=== PATIENT | male | born 1945 | race Caucasian/White ===

== ENCOUNTER 2017-07-02 08:50 | Emergency (ER) | payer OTHER ==
--- NOTE | 2017-07-02 10:11 | XRAY Report ---
EXAM: LEFT FOOT RADIOGRAPHY EXAM DATE: 07/02/2017 09:42 AM. CLINICAL HISTORY: Pain left mcp joint. COMPARISON: None. TECHNIQUE: 3 views. FINDINGS: Bones: No acute fractures or bone lesions. 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 Mild DJD at the first IP joint. Talonavicular DJD. No defini te erosions. Soft Tissues: Unremarkable. IMPRESSION: 1. No acute osseous abnormality. 2. Mild DJD. [facility] Referring Provider Line: [phone] SITE ID: [id number]
--- NOTE | 2017-07-02 10:11 | XRAY Preliminary Report ---
Exam: XR FOOT 3 VIEW LT IMPRESSION: 1. No acute osseous abnormality. 2. Mild DJD. [facility] SITE ID: [id number]
[2017-07-02] MEDS ORDERED: predniSONE 20 MG TABLET PO STA (10:59)
--- NOTE | 2017-07-02 10:59 | ED Physician Documentation ---
PD HPI LOWER EXT INJURY - Stated complaint Stated Complaint: LEG/FT PX - Chief complaint Chief Complaint: Ext Problem - History obtained from History obtained from: Patient - History of Present Illness PD HPI LOW EXT INJURY LOCATION: Left, Toe Type of injury: Other (No specific injury.) Timing - onset: How many weeks ago (2) Timing - details: Still present Worsened by: Moving, Palpating, Other (Weightbearing.) Associated symptoms: Swelling. No: Weakness, Numbness Similar symptoms before: Diagnosis (Reports history of similar symptoms in the past with gout.) - Treatment prior to arrival Treatment prior to arrival: hydrocodone. - Additional information Additional information: The patient is a 71-year-old male with history of gout, who presents with pain and swelling of his left big toe. His symptoms started 2 weeks ago and have persisted. He denies fever, numbness or weakness. He denies any traumatic injury. He has used hydrocodone without relief. He has been treated with short course of steroid medication for similar symptoms in the past, and that has helped. He does not take Naprosyn or other anti-inflammatory medication because of treatment with warfarin. He takes warfarin because of chronic atrial fibrillation. Review of Systems Constitutional: denies: Fever Nose: denies: Congestion Throat: denies: Sore throat Cardiac: denies: Chest pain / pressure Respiratory: denies: Dyspnea, Cough GI: denies: Abdominal Pain, Nausea, Vomiting : denies: Dysuria Skin: denies: Rash Musculoskeletal: reports: Extremity pain (Left great toe, especially at the MCP joint.), Extremity swelling (left foot.) Neurologic: denies: Generalized weakness, Focal weakness, Headache PD PAST MEDICAL HISTORY - Past Medical History Past Medical History: Yes Cardiovascular: Hypertension, Atrial fibrillation Endocrine/Autoimmune: HyPOthyroidism Musculoskeletal: Gout - Present Medications Home Medications: Ambulatory Orders Medication Instructions Recorded Confirmed predniSONE [Deltasone] 40 mg PO DAILY 5 Days #10 tablet 07/02/17 - Allergies Allergies/Adverse Reactions: Allergies Allergy/AdvReac Type Severity Reaction Status Date / Time Sulfa (Sulfonamide Allergy Unknown Verified 07/02/17 09:05 Antibiotics) - Social History Does the pt smoke?: No Smoking Status: Never smoker PD ED PE NORMAL - Vitals Vital signs reviewed: Yes (Borderline hypertension.) - General General: Alert and oriented X 3, Well developed/nourished - HEENT HEENT: Atraumatic - Cardiac Cardiac: No murmur, Other (Regular rate, irregularly irregular rhythm.) - Respiratory Respiratory: No respiratory distress, Clear bilaterally - Derm Derm: No rash - Extremities Extremities: No calf tenderness / cord, Other (There is slight erythema, and tenderness to palpation of the left great toe and distal foot, particularly at the first MCP joint. There is no significant warmth to palpation. Distal neurovascular is intact.) - Neuro Neuro: Alert and oriented X 3, No motor deficit, No sensory deficit Results - Vitals Vitals: Oxygen O2 Source Room air - Rads (name of study) left foot Radiology: Prelim report reviewed, EMP read contemporaneously, See rad report ( No acute osseous abnormality. Mild DJD.) PD MEDICAL DECISION MAKING - ED course Complexity details: reviewed results, re-evaluated patient, considered differential, d/w patient ED course: The patient's presentation is most consistent with gouty arthritis. His presentation does not suggest cellulitis or septic joint. There is no evidence of osteomyelitis on x-ray examination. Treatment in the emergency department included administration of prednisone 40 mg orally. He is being discharged with prescription for prednisone. I discussed with him symptomatic treatment, outpatient follow-up, as well as potentially worrisome signs or symptoms that should prompt reevaluation in the emergency department. Departure - Departure Disposition: 01 Home, Self Care Clinical Impression: Gouty arthritis of left great toe Condition: Stable Instructions: ED Arthritis Gout Prescriptions: predniSONE [Deltasone] 40 mg PO DAILY 5 Days #10 tablet Comments: Keep your left leg elevated as much of the time as possible. Take prednisone daily for 5 days as prescribed. Follow up with your primary physician within 1-2 weeks. Call to schedule appointment. Return to the emergency department if you develop increasing pain or swelling, or otherwise worsening symptoms. Discharge Date/Time: 07/02/17 11:12
[2017-07-02 11:05] VITALS: BP 138/93
== END 2017-07-02 11:12 | disposition home or self-care (01) ==
LOC: ED 08:50
DX: M10.9 Gout, unspecified (principal); I10 Essential (primary) hypertension; E03.9 Hypothyroidism, unspecified
CPT/HCPCS: 73630; 99283; J7512

== ENCOUNTER 2017-07-09 08:54 | Emergency (ER) | payer OTHER ==
[2017-07-09 09:02] VITALS: BP 139/90
[2017-07-09] MEDS ORDERED: KETOROLAC 60 MG/2 ML VIAL IM STA (09:21)
[2017-07-09] MEDS ORDERED: DEXAMETHASONE 10 MG/ML VIAL IM STA (09:21)
--- NOTE | 2017-07-09 09:34 | ED Physician Documentation ---
History of Present Illness - Stated complaint Stated Complaint: KNEE PX - Chief complaint Chief Complaint: Ext Problem - History obtained from History obtained from: Patient, Family - History of Present Illness Timing: How many weeks ago (2+) - Additonal information Additional information: 71-year-old male began to have some pain in his right knee and his left great toe about 2 and half weeks ago. He has been diagnosed with gouty arthritis and a gout attack. He has been on a 5 day course of prednisone which did not help as much as has in the past. He continues to have pain and now the pain in his knee is much worse. He is on Coumadin and has not been able to take Naprosyn. In the past he has relied on anti-inflammatories for treatment of the gout when he has had attacks. Review of Systems Constitutional: denies: Fever Eyes: denies: Decreased vision Ears: denies: Ear pain Nose: denies: Congestion Throat: denies: Sore throat Cardiac: denies: Chest pain / pressure Respiratory: denies: Dyspnea, Cough GI: denies: Abdominal Pain, Nausea, Vomiting : denies: Dysuria, Frequency Musculoskeletal: reports: Extremity pain. denies: Neck pain, Back pain Neurologic: denies: Generalized weakness, Focal weakness, Numbness PD PAST MEDICAL HISTORY - Past Medical History Past Medical History: Yes Cardiovascular: Hypertension, Atrial fibrillation Endocrine/Autoimmune: HyPOthyroidism Musculoskeletal: Gout - Present Medications Home Medications: Ambulatory Orders Medication Instructions Recorded Confirmed Colchicine 0.6 mg PO BID #20 tablet 07/09/17 Hydrocodone/Acetaminophen [Vicodin 1 tab ORAL QID 07/09/17 Hp 10-300 mg Tablet] Levothyroxine [Synthroid] 125 mcg PO QDAC 07/09/17 Lisinopril 10 mg PO DAILY 07/09/17 Metoprolol Succinate [Toprol Xl] 25 mg PO ONCE 07/09/17 Tamsulosin [Flomax] 0.4 mg PO DAILY 07/09/17 Warfarin [Coumadin] 5 mg PO 1400 07/09/17 amLODIPine [Norvasc] 5 mg PO DAILY 07/09/17 - Allergies Allergies/Adverse Reactions: Allergies Allergy/AdvReac Type Severity Reaction Status Date / Time Sulfa (Sulfonamide Allergy Unknown Verified 07/09/17 09:02 Antibiotics) - Social History Does the pt smoke?: No Smoking Status: Never smoker PD ED PE NORMAL - Vitals Vital signs reviewed: Yes (tachy and hypertensive) - General General: Alert and oriented X 3, No acute distress, Well developed/nourished - HEENT HEENT: Atraumatic, PERRL, EOMI - Respiratory Respiratory: No respiratory distress - Derm Derm: Normal color, Warm and dry, No rash - Extremities Extremities: No deformity, Other (There is tenderness to the right patella and this is similar to what the patient has had with prior episodes of gout. There is general swelling to the calf on the right and there are constriction bands present in the swelling from the FARZANEH wrap the patient has used. There is no palpable cord and not posterior calf tenderness. distal n/v is intact. The left great toe is erythematous and tender dorsally with swelling consistent with acute goutl.) - Neuro Neuro: Alert and oriented X 3, No motor deficit, No sensory deficit, Normal speech Eye Opening: Spontaneous Motor: Obeys Commands Verbal: Oriented GCS Score: 15 - Psych Psych: Normal mood, Normal affect Results - Vitals Vitals: Vital Signs - 24 hr 07/09/17 09:00 Temperature 36.8 C Heart Rate 107 H Respiratory 18 Rate Blood Pressure 139/90 H O2 Saturation 99 Oxygen O2 Source Room air - Labs Labs: Laboratory Tests 07/09/17 09:46 Whole Blood INR 1.5 H - Rads (name of study) right knee Radiology: Prelim report reviewed (Impression: Degenerative change right knee with prepatellar soft tissue swelling. 2. No acute bony pathology.), EMP read indepedently, See rad report PD MEDICAL DECISION MAKING - ED course Complexity details: reviewed results, re-evaluated patient, considered differential, d/w patient, d/w family ED course: 71-year-old male with acute gouty arthritis that is not resolving is not able to take anti-inflammatories. Here in the emergency department is treated with 10 mg dexamethasone 60 mg of Toradol IM and 1.2 mg of colchicine orally. We will place him on some colchicine and provide some pain medication as well. Departure - Departure Disposition: 01 Home, Self Care Clinical Impression: Gout of right knee Qualifiers: Gout etiology: idiopathic Chronicity: acute Qualified Code(s): M10.061 - Idiopathic gout, right knee Condition: Stable Instructions: ED Arthritis Gout Follow-Up: EARL JAMES MD [Primary Care Provider] - Prescriptions: Colchicine 0.6 mg PO BID #20 tablet
[2017-07-09] MEDS ORDERED: COLCHICINE 0.6 MG TABLET PO STA (09:50)
--- NOTE | 2017-07-09 09:58 | XRAY Report ---
EXAM: RIGHT KNEE RADIOGRAPHY EXAM DATE: 07/09/2017 09:46 AM. CLINICAL HISTORY: Pain swelling over patella. COMPARISON: None. TECHNIQUE: 4 views. FINDINGS: Bones: No fractures or bone lesions. Patellar tendon insertion enthesophyte. Joints: Medial and lateral meniscal chondrocalcinosis. Minimal early spurring along the medial knee j oint. Mild patellar articular surface spurring. Possible suprapatellar effusion. Soft Tissues: Prepatellar soft tissue swelling. IMPRESSION: Degenerative change right knee with prepatellar soft tissue swelling. No acute bony patho logy. [facility] Referring Provider Line: [phone] SITE ID: [id number]
== END 2017-07-09 10:19 | disposition home or self-care (01) ==
LOC: ED 08:54
DX: M10.061 Idiopathic gout, right knee (principal); I10 Essential (primary) hypertension; I48.91 Unspecified atrial fibrillation; Z79.01 Long term (current) use of anticoagulants; E03.9 Hypothyroidism, unspecified
CPT/HCPCS: 73564; 85610; 99283; A9270

== ENCOUNTER 2017-10-19 07:26 | Outpatient (CLI) | payer OTHER ==
[2017-10-19 07:55] LABS: BASOPHILS # (AUTO) 0.1 10^3/uL (0.0-0.1); BASOPHILS % (AUTO) 1.2 %; EOSINOPHILS # (AUTO) 0.4 10^3/uL (0.0-0.7); EOSINOPHILS % (AUTO) 6.2 %; HGB - HEMOGLOBIN 14.3 g/dL (14.0-18.0); LYMPHOCYTES # (AUTO) 1.4 10^3/uL (1.5-3.5); LYMPHOCYTES % (AUTO) 22.5 %; MEAN CORPUSCULAR HEMOGLOBIN 28.8 pg (27.0-31.0); MEAN CORPUSCULAR HGB CONC 32.9 g/dL (32.0-36.0); MEAN CORPUSCULAR VOLUME 87.7 fL (80.0-94.0); MONOCYTES # (AUTO) 0.6 10^3/uL (0.0-1.0); MONOCYTES % (AUTO) 8.6 %; NEUTROPHILS % (AUTO) 61.5 %; PLT - PLATELET COUNT 213 10^3/uL (130-450); RED BLOOD COUNT 4.97 10^6/uL (4.70-6.10); RED CELL DISTRIBUTION WIDTH 16.8 % (12.0-15.0); WHITE BLOOD COUNT 6.5 x10^3/uL (4.8-10.8)
[2017-10-19 08:05] LABS: HB2 TOTAL 15.9 g/dL; HEMOGLOBIN A1C 0.73 g/dL; HEMOGLOBIN A1C % 6.4 % (4.6-6.2)
[2017-10-19 08:06] LABS: INR 2.4 (0.8-1.2); PT - PROTHROMBIN TIME 25.8 secs (9.9-12.6)
[2017-10-19 08:07] LABS: ALBUMIN 3.9 g/dL (3.2-5.5); ALKALINE PHOSPHATASE 100 IU/L (42-121); ALT ALANINE AMINOTRANSFERASE 23 IU/L (10-60); AST ASPARTATE AMINOTRANSFERASE 23 IU/L (10-42); BILIRUBIN,TOTAL 0.6 mg/dL (0.2-1.0); BUN - BLOOD UREA NITROGEN 17 mg/dL (6-20); CARBON DIOXIDE - CO2 27 mmol/L (21-32); CHLORIDE 103 mmol/L (101-111); CHOL/HDL RATIO 3.8 (<5.0); CHOLESTEROL 181 mg/dL; CREATININE 1.3 mg/dL (0.6-1.2); GFR - MDRD 54 (>89); GLUCOSE 128 mg/dL (70-100); HDL CHOLESTEROL 48 mg/dL; LDL CHOLESTEROL,CALCULATED 112 mg/dL; LDL/HDL RATIO 2.3 (<3.6); MAGNESIUM 1.6 mg/dL (1.7-2.8); SODIUM 136 mmol/L (135-145); TOTAL PROTEIN 7.7 g/dL (6.7-8.2); URIC ACID 4.3 mg/dL (2.6-7.2); VLDL CHOLESTEROL 21 mg/dL
[2017-10-19 08:08] LABS: BILIRUBIN,URINE NEGATIVE (NEGATIVE); GLUCOSE, URINE (UA) NEGATIVE (NEGATIVE); KETONES,URINE (UA) NEGATIVE (NEGATIVE); LEUKOCYTE ESTERASE, URINE NEGATIVE (NEGATIVE); NITRITE,URINE NEGATIVE (NEGATIVE); OCCULT BLOOD,URINE SMALL (NEGATIVE); PROTEIN,URINE 100 mg/dL (NEGATIVE); UROBILINOGEN,URINE 0.2 (NORMAL) E.U./dL (NORMAL)
[2017-10-19 08:24] LABS: CLARITY,URINE CLEAR (CLEAR)
[2017-10-19 08:43] LABS: BACTERIA,URINE None Seen /HPF (None Seen); RBC,URINE 0-5 /HPF (0-5); SQUAMOUS EPITHELIAL CELL,UR RARE Squamous (<= Few)
[2017-10-19 08:44] LABS: CASTS, URINE 0-2 Hyaline Casts /LPF
[2017-10-21 08:57] LABS: HEPATITIS C ANTIBODY NON-REACTIVE (NON-REACTIVE)
== END 2017-10-19 07:27 | disposition home or self-care (01) ==
LOC: LAB 07:26
PROVIDERS: ATTEND Internal Medicine
DX: Z79.899 Other long term (current) drug therapy (principal); Z79.01 Long term (current) use of anticoagulants; Z13.6 Encounter for screening for cardiovascular disorders; I10 Essential (primary) hypertension; I48.91 Unspecified atrial fibrillation; M48.00 Spinal stenosis, site unspecified; M10.9 Gout, unspecified; G47.00 Insomnia, unspecified; G47.62 Sleep related leg cramps; R73.01 Impaired fasting glucose; E03.9 Hypothyroidism, unspecified; N19 Unspecified kidney failure
CPT/HCPCS: 36415; 80053; 80061; 81001; 81003; 83036; 83721; 83735; 84443; 84550; 85025; 85610; 86803; 87086

== ENCOUNTER 2018-01-21 11:20 | Outpatient (CLI) | payer OTHER | END 2018-01-21 11:21 | disposition home or self-care (01) | LOC: LAB 11:20 | PROVIDERS: ATTEND Internal Medicine | DX: E05.90 Thyrotoxicosis, unspecified without thyrotoxic crisis or storm (principal) | CPT/HCPCS: 36415; 84443 ==

== ENCOUNTER 2018-07-31 08:44 | Outpatient (CLI) | payer MEDICARE, BC | END 2018-07-31 08:45 | disposition home or self-care (01) | LOC: LAB.F 08:44 | PROVIDERS: ATTEND Internal Medicine | DX: I48.91 Unspecified atrial fibrillation (principal) | CPT/HCPCS: 85610 ==

== ENCOUNTER 2018-09-05 14:30 | Outpatient (CLI) | payer MEDICARE, BC | END 2018-09-05 14:31 | disposition home or self-care (01) | LOC: LAB.F 14:30 | PROVIDERS: ATTEND Internal Medicine | DX: I48.91 Unspecified atrial fibrillation (principal) | CPT/HCPCS: 85610 ==

== ENCOUNTER 2018-09-22 09:18 | Outpatient (CLI) | payer MEDICARE, BC | END 2018-09-22 09:19 | disposition home or self-care (01) | LOC: LAB.F 09:18 | PROVIDERS: ATTEND Internal Medicine | DX: I48.91 Unspecified atrial fibrillation (principal) | CPT/HCPCS: 85610 ==

== ENCOUNTER 2018-09-26 08:24 | Outpatient (CLI) | payer MEDICARE, BC ==
[2018-09-26 10:54] LABS: BASOPHILS % (AUTO) 0.8 %; EOSINOPHILS # (AUTO) 0.4 10^3/uL (0.0-0.7); EOSINOPHILS % (AUTO) 7.2 %; HGB - HEMOGLOBIN 12.7 g/dL (14.0-18.0); LYMPHOCYTES # (AUTO) 1.1 10^3/uL (1.5-3.5); LYMPHOCYTES % (AUTO) 19.1 %; MEAN CORPUSCULAR HGB CONC 33.7 g/dL (32.0-36.0); MONOCYTES # (AUTO) 0.6 10^3/uL (0.0-1.0); MONOCYTES % (AUTO) 9.6 %; NEUTROPHILS # (AUTO) 3.7 10^3/uL (1.5-6.6); NEUTROPHILS % (AUTO) 63.3 %; PLT - PLATELET COUNT 196 10^3/uL (130-450); RED BLOOD COUNT 4.23 10^6/uL (4.70-6.10); RED CELL DISTRIBUTION WIDTH 15.3 % (12.0-15.0); WHITE BLOOD COUNT 5.8 x10^3/uL (4.8-10.8)
[2018-09-26 11:14] LABS: ALBUMIN 3.8 g/dL (3.2-5.5); ALBUMIN/GLOBULIN RATIO 1.2 (1.0-2.2); ALKALINE PHOSPHATASE 113 IU/L (42-121); ALT ALANINE AMINOTRANSFERASE 25 IU/L (10-60); AST ASPARTATE AMINOTRANSFERASE 26 IU/L (10-42); BILIRUBIN,TOTAL 0.8 mg/dL (0.2-1.0); BUN - BLOOD UREA NITROGEN 14 mg/dL (6-20); CALCIUM 8.7 mg/dL (8.5-10.3); CARBON DIOXIDE - CO2 24 mmol/L (21-32); CHLORIDE 104 mmol/L (101-111); CHOL/HDL RATIO 3.1 (<5.0); CHOLESTEROL 119 mg/dL; GFR - MDRD 73 (>89); GLUCOSE 98 mg/dL (70-100); HDL CHOLESTEROL 38 mg/dL; LDL CHOLESTEROL,CALCULATED 70 mg/dL; LDL/HDL RATIO 1.8 (<3.6); SODIUM 138 mmol/L (135-145); TOTAL PROTEIN 7.1 g/dL (6.7-8.2); URIC ACID 7.3 mg/dL (2.6-7.2); VLDL CHOLESTEROL 11 mg/dL
[2018-09-26 11:27] LABS: HB2 TOTAL 13.1 g/dL; HEMOGLOBIN A1C 0.53 g/dL; HEMOGLOBIN A1C % 5.9 % (4.6-6.2)
[2018-09-26 18:22] LABS: BILIRUBIN,URINE NEGATIVE (NEGATIVE); GLUCOSE, URINE (UA) NEGATIVE (NEGATIVE); KETONES,URINE (UA) NEGATIVE (NEGATIVE); LEUKOCYTE ESTERASE, URINE NEGATIVE (NEGATIVE); NITRITE,URINE NEGATIVE (NEGATIVE); OCCULT BLOOD,URINE NEGATIVE (NEGATIVE); PH,URINE 6.5 PH (5.0-7.5); PROTEIN,URINE NEGATIVE (NEGATIVE); UROBILINOGEN,URINE 0.2 (NORMAL) E.U./dL (NORMAL)
[2018-09-26 18:24] LABS: CLARITY,URINE CLEAR (CLEAR)
== END 2018-09-26 08:25 | disposition home or self-care (01) ==
LOC: LAB.F 08:24
PROVIDERS: ATTEND Internal Medicine
DX: R73.01 Impaired fasting glucose (principal); M10.9 Gout, unspecified; E03.9 Hypothyroidism, unspecified; G47.00 Insomnia, unspecified; I48.91 Unspecified atrial fibrillation; I10 Essential (primary) hypertension; N19 Unspecified kidney failure; Z79.899 Other long term (current) drug therapy; Z13.6 Encounter for screening for cardiovascular disorders; Z12.11 Encounter for screening for malignant neoplasm of colon; Z12.12 Encounter for screening for malignant neoplasm of rectum; Z12.5 Encounter for screening for malignant neoplasm of prostate
CPT/HCPCS: 36415; 80061; 81003; 82274; 83036; 84550; G0103; 80053; 81001; 82607; 83721; 84153; 84443; 85025; 87086

== ENCOUNTER 2018-12-19 09:23 | Outpatient (CLI) | payer MEDICARE, BC | END 2018-12-19 09:24 | disposition home or self-care (01) | LOC: LAB.S 09:23 | PROVIDERS: ATTEND Internal Medicine | DX: I48.91 Unspecified atrial fibrillation (principal) | CPT/HCPCS: 85610 ==

== ENCOUNTER 2019-02-04 13:15 | Outpatient (CLI) | payer MEDICARE, BC | END 2019-02-04 13:16 | disposition home or self-care (01) | LOC: LAB.S 13:15 | PROVIDERS: ATTEND Internal Medicine | DX: I48.91 Unspecified atrial fibrillation (principal) | CPT/HCPCS: 85610 ==

== ENCOUNTER 2019-02-10 10:08 | Outpatient (CLI) | payer MEDICARE, BC | END 2019-02-10 10:09 | disposition home or self-care (01) | LOC: LAB.S 10:08 | PROVIDERS: ATTEND Internal Medicine | DX: I48.91 Unspecified atrial fibrillation (principal) | CPT/HCPCS: 85610 ==

== ENCOUNTER 2019-03-13 08:47 | Outpatient (CLI) | payer MEDICARE, BC | END 2019-03-13 08:48 | disposition home or self-care (01) | LOC: LAB.S 08:47 | PROVIDERS: ATTEND Internal Medicine | DX: I48.91 Unspecified atrial fibrillation (principal) | CPT/HCPCS: 85610 ==

== ENCOUNTER 2019-04-27 08:56 | Outpatient (CLI) | payer MEDICARE, BC | END 2019-04-27 08:57 | disposition home or self-care (01) | LOC: LAB.S 08:56 | PROVIDERS: ATTEND Internal Medicine | DX: I48.91 Unspecified atrial fibrillation (principal) | CPT/HCPCS: 85610 ==

== ENCOUNTER 2019-05-11 13:11 | Outpatient (CLI) | payer MEDICARE, BC | END 2019-05-11 13:12 | disposition home or self-care (01) | LOC: LAB.S 13:11 | PROVIDERS: ATTEND Internal Medicine | DX: I48.91 Unspecified atrial fibrillation (principal) | CPT/HCPCS: 85610 ==

== ENCOUNTER 2019-06-17 09:55 | Outpatient (CLI) | payer MEDICARE, BC | END 2019-06-17 09:56 | disposition home or self-care (01) | LOC: LAB.S 09:55 | PROVIDERS: ATTEND Internal Medicine | DX: I48.91 Unspecified atrial fibrillation (principal) | CPT/HCPCS: 85610 ==

== ENCOUNTER 2019-06-30 09:52 | Inpatient (IN) | payer MEDICARE, BC ==
--- NOTE | 2019-06-30 10:34 | XRAY Report ---
Reason: Chest Pain Procedure Date: 06/30/2019 Accession Number: [id number] / [id number] Procedure: XR - Chest 1 View X-Ray CPT Code: 03075 Final Report FULL RESULT: EXAM: CHEST RADIOGRAPHY EXAM DATE: 06/30/2019 10:04 AM. CLINICAL HISTORY: Chest Pain. COMPARISON: None. TECHNIQUE: 1 view. FINDINGS: Lungs/Pleura: No focal opacities evident. No pleural effusion. No pneumothorax. Mediastinum: Mild cardiomegaly. Ectatic aorta Other: Old right rib fractures. Left humeral anchors. Postop changes right AC joint IMPRESSION: 1. Mild cardiomegaly. 2. No active cardiopulmonary disease [facility]
[2019-06-30 10:41] LABS: BASOPHILS % (AUTO) 0.5 %; EOSINOPHILS # (AUTO) 0.4 10^3/uL (0.0-0.7); EOSINOPHILS % (AUTO) 4.4 %; HGB - HEMOGLOBIN 11.9 g/dL (14.0-18.0); LYMPHOCYTES # (AUTO) 1.2 10^3/uL (1.5-3.5); LYMPHOCYTES % (AUTO) 14.5 %; MEAN CORPUSCULAR HEMOGLOBIN 28.3 pg (27.0-31.0); MEAN CORPUSCULAR HGB CONC 31.6 g/dL (32.0-36.0); MEAN CORPUSCULAR VOLUME 89.5 fL (80.0-94.0); MEAN PLATELET VOLUME 10.1 fL (7.4-11.4); MONOCYTES # (AUTO) 0.9 10^3/uL (0.0-1.0); NEUTROPHILS # (AUTO) 5.9 10^3/uL (1.5-6.6); NEUTROPHILS % (AUTO) 69.3 %; PLT - PLATELET COUNT 217 10^3/uL (130-450); RED CELL DISTRIBUTION WIDTH 14.7 % (12.0-15.0); WHITE BLOOD COUNT 8.6 x10^3/uL (4.8-10.8)
[2019-06-30 10:56] LABS: ALBUMIN 3.5 g/dL (3.2-5.5); ALBUMIN/GLOBULIN RATIO 1.1 (1.0-2.2); BILIRUBIN,TOTAL 0.5 mg/dL (0.2-1.0); CALCIUM 8.8 mg/dL (8.5-10.3); CREATININE 1.5 mg/dL (0.6-1.2); TOTAL PROTEIN 6.8 g/dL (6.7-8.2)
--- NOTE | 2019-06-30 11:31 | ED Physician Documentation ---
PD HPI CHEST PAIN - Stated complaint Stated Complaint: INCREASED HEART RATE/CHEST TIGHTNESS - Chief complaint Chief Complaint: Cardiac - History obtained from History obtained from: Patient (This 73-year-old gentleman presents today with complaint of increased heart rate that started last Saturday after he had an epidural steroid injection at the L5-S1 region for neuropathy, that evening he noticed his heart rate was increased and since then his heart rate has remained increased into the 130s. At rest he can feel his heart racing but he does not feel short of breath lightheaded or dizzy or having chest pain but when he gets up and exerts himself he becomes fatigued very easily.) - History of Present Illness Pain level now: 0 Review of Systems Constitutional: reports: Fatigue (exhertional). denies: Fever, Chills Eyes: denies: Loss of vision, Decreased vision Cardiac: reports: Palpitations, Pedal edema. denies: Calf pain Respiratory: denies: Dyspnea, Cough, Wheezing GI: denies: Abdominal Pain, Nausea, Vomiting, Diarrhea : denies: Dysuria Neurologic: reports: Generalized weakness. denies: Syncope, Headache PD PAST MEDICAL HISTORY - Past Medical History Cardiovascular: Hypertension, Atrial fibrillation Respiratory: None Neuro: None Endocrine/Autoimmune: HyPOthyroidism Musculoskeletal: Gout - Present Medications Home Medications: Ambulatory Orders Medication Instructions Recorded Confirmed Colchicine 0.6 mg PO BID #20 tablet 07/09/17 06/30/19 Levothyroxine [Synthroid] 175 mcg PO QDAC 07/09/17 06/30/19 Warfarin [Coumadin] 5 mg PO 1700 07/09/17 06/30/19 amLODIPine [Norvasc] 5 mg PO DAILY 07/09/17 06/30/19 Meloxicam 7.5 mg PO BID PRN 06/30/19 06/30/19 Metoprolol Tartrate 25 mg PO BID 06/30/19 06/30/19 Pregabalin 75 mg PO BID 06/30/19 06/30/19 lisinopriL [Lisinopril] 2.5 mg PO DAILY 06/30/19 06/30/19 - Allergies Allergies/Adverse Reactions: Allergies Allergy/AdvReac Type Severity Reaction Status Date / Time Sulfa (Sulfonamide Allergy Unknown Verified 06/30/19 10:02 Antibiotics) - Social History Does the pt smoke?: No Smoking Status: Never smoker PD ED PE NORMAL - General General: Alert and oriented X 3 - HEENT HEENT: Atraumatic - Neck Neck: No JVD - Cardiac Cardiac: No murmur - Respiratory Respiratory: No respiratory distress, Clear bilaterally - Abdomen Abdomen: Normal bowel sounds, Soft, Non tender - Extremities Extremities: Other (BLEE L>R) - Psych Psych: Normal mood, Normal affect Results - Vitals Vitals: Vital Signs - 24 hr 06/30/19 06/30/19 06/30/19 10:02 10:30 12:24 Temperature 37.2 C Heart Rate 134 H 135 H 132 H Heart Rate [ Apical] Respiratory 18 12 18 Rate Blood Pressure 104/83 H 125/94 H 113/94 H Blood Pressure [Left Brachial artery] O2 Saturation 100 95 94 06/30/19 06/30/19 14:00 16:03 Temperature 36.9 C 36.7 C Heart Rate Heart Rate [ 78 77 Apical] Respiratory 19 20 Rate Blood Pressure Blood Pressure 125/75 123/70 [Left Brachial artery] O2 Saturation 99 99 Oxygen O2 Source Room air - Labs Labs: Laboratory Tests 06/30/19 06/30/19 06/30/19 10:23 10:23 10:23 WBC 8.6 RBC 4.20 L Hgb 11.9 L Hct 37.6 L MCV 89.5 MCH 28.3 MCHC 31.6 L RDW 14.7 Plt Count 217 MPV 10.1 Neut # (Auto) 5.9 Lymph # (Auto) 1.2 L [place] # (Auto) 0.9 Eos # (Auto) 0.4 Baso # (Auto) 0.0 Absolute Nucleated RBC 0.00 Nucleated RBC % 0.0 PT INR Sodium 138 Potassium 4.4 Chloride 107 Carbon Dioxide 24 Anion Gap 7.0 BUN 22 H Creatinine 1.5 H Estimated GFR (MDRD) 46 L Glucose 147 H Calcium 8.8 Magnesium Total Bilirubin 0.5 AST 19 ALT 25 Alkaline Phosphatase 107 Troponin I High Sens 76.7 H* B-Natriuretic Peptide Total Protein 6.8 Albumin 3.5 Globulin 3.3 Albumin/Globulin Ratio 1.1 Lipase 25 TSH 06/30/19 06/30/19 06/30/19 10:23 10:23 11:37 WBC RBC Hgb Hct MCV MCH MCHC RDW Plt Count MPV Neut # (Auto) Lymph # (Auto) [place] # (Auto) Eos # (Auto) Baso # (Auto) Absolute Nucleated RBC Nucleated RBC % PT 31.3 H INR 2.9 H Sodium Potassium Chloride Carbon Dioxide Anion Gap BUN Creatinine Estimated GFR (MDRD) Glucose Calcium Magnesium 1.9 Total Bilirubin AST ALT Alkaline Phosphatase Troponin I High Sens B-Natriuretic Peptide 345 H Total Protein Albumin Globulin Albumin/Globulin Ratio Lipase TSH 06/30/19 06/30/19 06/30/19 12:39 16:19 16:19 WBC RBC Hgb Hct MCV MCH MCHC RDW Plt Count MPV Neut # (Auto) Lymph # (Auto) [place] # (Auto) Eos # (Auto) Baso # (Auto) Absolute Nucleated RBC Nucleated RBC % PT INR Sodium Potassium Chloride Carbon Dioxide Anion Gap BUN Creatinine Estimated GFR (MDRD) Glucose Calcium Magnesium Total Bilirubin AST ALT Alkaline Phosphatase Troponin I High Sens 86.0 H* 155.3 H* B-Natriuretic Peptide Total Protein Albumin Globulin Albumin/Globulin Ratio Lipase TSH 1.77 PD MEDICAL DECISION MAKING - ED course Complexity details: reviewed old records, reviewed results, re-evaluated patient, considered differential, d/w patient, d/w medical record consultant (The patient's initial troponin came back at 76.7 BUN was 22 creatinine was 1.5 his BNP came back at 345. he continued to remain in the study 130 -335 heart rate and what appears A. fib, he denies chest pain shortness of breath. discussed the case with Dr. Johnson , hospitalist about the patient situation. after an initial dose of 5 mg of IV metoprolol the patient's heart rate remained steady to 130, after approximate an hour after the metoprolol the patient's heart rate did drop spontaneously down to about 75, a second EKG was done it appears the patient continues to be in A. fib Dr. Johnson has agreed to accept the patient for further work-up. Discussed this with the patient who is making arrangements to have someone come and get his ) - Consults Consults: Discussed case with (Dr Johnson) Departure - Departure Disposition: ED Place in Observation Clinical Impression: Atrial fibrillation Qualifiers: Atrial fibrillation type: unspecified Qualified Code(s): I48.91 - Unspecified atrial fibrillation Dyspnea Qualifiers: Dyspnea type: dyspnea on exertion Qualified Code(s): R06.09 - Other forms of dyspnea Congestive heart failure Qualifiers: Heart failure type: unspecified Heart failure chronicity: unspecified Qualified Code(s): I50.9 - Heart failure, unspecified Condition: Fair Discharge Date/Time: 06/30/19 13:44
[2019-06-30] MEDS ORDERED: METOPROLOL 5 MG/5 ML VIAL IVP STA ×2 (11:38→12:29)
[2019-06-30 12:09] LABS: INR 2.9 (0.8-1.2); PT - PROTHROMBIN TIME 31.3 secs (9.9-12.6)
[2019-06-30] MEDS ORDERED: ACETAMINOPHEN 325 MG TABLET PO PRN (14:16)
[2019-06-30] MEDS ORDERED: SODIUM CHLORIDE FLUSH 0.9% 10 ML SYRINGE IVP PRN (14:16)
[2019-06-30] MEDS: FUROSEMIDE 20 MG/2 ML VIAL IVP SCH (16:01)
[2019-06-30] MEDS: SODIUM CHLORIDE FLUSH 0.9% 10 ML SYRINGE IVP SCH (16:42)
[2019-06-30] MEDS ORDERED: ACETAMINOPHEN ORAL SCH (17:00)
[2019-06-30] MEDS ORDERED: WARFARIN 5 MG TABLET PO SCH (17:00)
[2019-06-30] MEDS ORDERED: HYDROCODONE ORAL SCH (17:00)
--- NOTE | 2019-06-30 17:01 | PHARMACY PROGRESS NOTE ---
- Best Possible Medication History Admit Date and Time: 06/30/19 1305 Processed by: Pharmacy Medication History completed: Yes Patient Interview: Completed Secondary Source(s): Insurance records As the person ultimately responsible for medication therapy, providers are able to order a medication from an existing home medication list in [facility] via the "Reconcile Routine" prior to Confirmation of that medication by software support technician. Such practice is discouraged except when the physician, in their clinical judgment, deems that a medical need exists for a medication without regard to previous use.
--- NOTE | 2019-06-30 18:15 | HISTORY & PHYSICAL EXAMINATION ---
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 He has a history of atrial fibrillation, which was diagnosed in 2011, and he was at that time started on metoprolol and warfarin, but never underwent stress testing, echo or any cardiac workup to evaluate a reason for new onset of atrial fibrillation. He remembers a remote stress test done 30 years ago, which he passed. He has a history of a heart murmur since childhood. He has never had an Echo. Over the last several years, he has had worsening low back pain and diagnosed with compressed disks and has had several spinal surgeries, and about 4 months ago underwent steroid injections into his nerve roots from bilateral hip approach, then last week he underwent an epidural injection of steroids for further treatment of his low back pain and painful neuropathy. Prior to that, he was told to stop his Coumadin for 2 days and on the day of the injection he was told to resume it, knowing that it would take 72 hours for INR to be therapeutic. Following that injection, he started to notice palpitations which he has not had since 8 years ago when his atrial fibrillation was first diagnosed. He thought the palpitations were occurring because he was nervous and stressed for financial reasons and also because last week he retired on the very day of his epidural injection. The palpitations have lasted 6 days, and each day he is getting more fatigued and having difficulty performing daily activities and "new projects" planned for prison, which is frustrating him. He denies chest pain, dyspnea on exertion or orthopnea, however, cannot tell if he has PND because he wears a CPAP device at night for sleep apnea. He presented to the emergency room today, where he was found to be in atrial flutter with a rapid ventricular rate of 140. He received metoprolol 5 mg IV, and he broke into atrial flutter with variable rate in the 70s and 80s. His other labs returned showing elevated troponin in the 70s and elevated BNP of 345. He was to be placed in Observation for management of atrial flutter with rapid ventricular rate and new onset of CHF symptoms. The patient does report that over the last 2 weeks he has taken daily Meloxicam and prior to that he was only taking it p.r.n. This was at the advice of his pain doctor who gave him the epidural injection. There have been no other new changes of medications, travel out of the country, no fever, cough, vomiting or diarrhea. PAST MEDICAL HISTORY: Chronic atrial fibrillation on warfarin, hypertension, hypothyroidism, sleep apnea on CPAP, chronic low back pain with spinal stenosis and pain of the legs. ALLERGIES: SULFA. MEDICATIONS 1. Amlodipine 5 mg daily. 2. Lisinopril 2.5 mg daily. 3. Metoprolol tartrate 25 mg b.i.d. 4. Colchicine 0.6 mg b.i.d. p.r.n. gouty attack. 5. Synthroid 175 mcg daily. 6. Warfarin 5 mg every evening. 7. Meloxicam 7.5 mg b.i.d. on schedule for the last 2 weeks and before that p.r.n. 8. Pregabalin 75 mg b.i.d. REVIEW OF SYSTEMS: The patient reports that when his Synthroid dose was decreased to 150 or lower he gets marked fatigue. The TSH has been followed and his proper dose is truly 175 mcg daily. A comprehensive review of systems was performed and the pertinent positives are listed, the rest are negative. FAMILY HISTORY: Positive for heart disease in his father, who of congestive heart failure after having 2 valve replacements in open heart surgery. His sister also has valve disease, but has not needed surgery. SOCIAL HISTORY: The patient is a of 3 prior wives and also had a fourth , from whom he . He currently lives alone. His last exactly 1 year ago today and he is emotional about this. He lives with a dog. He just retired 1 week ago and describes a previous stressful daily commute, having to awaken at 2:30 a.m. every morning to catch the 4:[place] ferry to be in [facility] in can sterilizer [place] hour time. The patient is a nonsmoker, who never smoked, drinks no alcohol, no illicit drug use. PHYSICAL EXAMINATION GENERAL: Elderly white male, who is in no distress, sitting upright in bed. VITAL SIGNS: Blood pressure 104-125/80-90, heart rate was 135 in atrial flutter and now down to 77 in atrial flutter, afebrile, room air saturation 95%. HEENT: Unremarkable. NECK: Without JVD in a vertical position. No carotid bruits. CHEST: Bibasilar crackles. HEART: Irregular. Distant heart sounds. No audible murmur. ABDOMEN: Soft with positive bowel sounds, nontender. EXTREMITIES: Show 1+ ankle edema. No clubbing or cyanosis. NEUROLOGIC: Grossly intact. LABORATORY DATA: White blood count 8.6, hemoglobin 11.9, platelet count 217. INR 2.9. Normal electrolytes. BUN 22, creatinine 1.5. The last creatinine was 1.0 about 2 years ago. The first troponin-high sensitivity is 76, the next one is 86. BNP 345. CHEST X-RAY: Cardiomegaly. No active pulmonary disease. EKG: Atrial flutter with 2:1 block, with a ventricular rate of 135. J-point elevation is present in lead III, but no other consecutive leads. There is ST depressions in leads I, aVL and V6. He has poor R-wave progression. There is no old EKG available for comparison. IMPRESSION/DIAGNOSES 1. Atrial flutter with rapid ventricular rate. 2. New onset of congestive heart failure. CHF may be what caused the rapid rate of atrial flutter or may be a result of having palpitations and tachycardia in rapid atrial flutter. Also, his high nonsteroidal anti-inflammatory use over 2 weeks is probably added to salt and water retention. 3. Hypothyroidism. 4. Acute kidney injury. 5. Chronic low back pain. 6. Hypertension. 7. Obstructive sleep apnea, on CPAP. 8. Abnormal EKG. PLAN 1. Place the patient in Observation status on telemetry. 2. Continue with heart rate control with beta uziel, but change from Metoprolol Tartrate 25 b.i.d. to Metoprolol Succinate b.i.d. 3. Continue with his Coumadin and follow daily INR. INR target is 2-3. We discussed change to a NOAC, and he prefers to "have control" of his anticogulation and doesn't mind having repeat INR blood tests. 4. Cycle troponins until they peak and reverse. 5. Follow daily BMP. 6. Start the patient on a low-salt and fluid-restricted diet and also begin IV b.i.d. Lasix. 7. Follow his BUN and creatinine, as he likely has increased venous congestion causing the renal dysfunction. 8. Continue with his back pain medications. 9. Stop the Amlodipine and if needed, Cardizem would be added in its place, but initially we will maximize his Metoprolol dosing for both blood pressure management and rate control. 10. Continue with his home CPAP device. 11. Proceed to a stress test if there are findings of abnormalities by Echo or troponins. 12. Obtain a full Echo. DEEP VENOUS THROMBOSIS PROPHYLAXIS: Pharmacotherapy with his therapeutic Coumadin. CODE STATUS: FULL CODE. ATTESTATION: The patient is expected to be discharged or transferred to another facility within 96 hours: Yes. ADDENDUM: the 3rd troponin-hs just returned and is rising significantly (77>> 86>> 155), suggesting possible acute NSTEMI. He will be admitted to full inpatient status. Will add NTPaste for preload reduction in CHF and coronary vasodilation, and add baby aspirin, check lipids and use statin. cc: Aminta Go MD TD: 06/30/2019 17:49 MTDD
[2019-06-30] MEDS: METOPROLOL SUCCINATE 25 MG TABLET PO SCH (21:16)
[2019-06-30] MEDS: COLCHICINE 0.6 MG TABLET PO PRN (21:16)
[2019-06-30] MEDS ORDERED: IBUPROFEN 400 MG TABLET PO STA (21:33)
[2019-06-30] MEDS: PREGABALIN 25 MG CAPSULE PO SCH (22:36)
[2019-07-01] MEDS: SODIUM CHLORIDE FLUSH 0.9% 10 ML SYRINGE IVP SCH ×2 (02:40→10:24)
[2019-07-01 05:29] LABS: INR 3.4 (0.8-1.2); PT - PROTHROMBIN TIME 36.4 secs (9.9-12.6)
[2019-07-01 05:32] LABS: CALCIUM 8.6 mg/dL (8.5-10.3); CREATININE 1.3 mg/dL (0.6-1.2)
[2019-07-01] MEDS: COLCHICINE 0.6 MG TABLET PO PRN ×2 (06:22→09:56)
[2019-07-01] MEDS: FUROSEMIDE 20 MG/2 ML VIAL IVP SCH ×2 (06:22→14:34)
[2019-07-01] MEDS ORDERED: LEVOTHYROXINE 125 MCG TABLET PO SCH (07:00)
[2019-07-01] MEDS ORDERED: PANTOPRAZOLE 40 MG TABLET PO SCH (07:00)
[2019-07-01] MEDS ORDERED: SPIRONOLACTONE 25 MG TABLET PO SCH (09:00)
[2019-07-01] MEDS ORDERED: diltiaZEM CD 120 MG CAPSULE PO SCH (09:00)
[2019-07-01] MEDS ORDERED: TAMSULOSIN 0.4 MG CAPSULE PO SCH (09:00)
[2019-07-01] MEDS ORDERED: lisinopriL 5 MG TABLET PO SCH (09:00)
[2019-07-01] MEDS ORDERED: IBUPROFEN 400 MG TABLET PO PRN (09:14)
[2019-07-01] MEDS: PREGABALIN 25 MG CAPSULE PO SCH (09:15)
[2019-07-01] MEDS ORDERED: AMINOPHYLLINE 250 MG/10 ML VIAL ONE (10:32)
[2019-07-01] MEDS ORDERED: REGADENOSON 0.4 MG/5 ML SYRINGE IVP ONE ×2 (10:32→12:47)
[2019-07-01] MEDS ORDERED: ASPIRIN EC 81 MG TABLET PO SCH (12:00)
[2019-07-01] MEDS: METOPROLOL SUCCINATE 25 MG TABLET PO SCH (12:25)
--- NOTE | 2019-07-01 13:24 | CARDIAC PROCEDURE NOTE ---
DATE OF SERVICE: 07/01/2019 Physician: Rosita Johnson MD INDICATION: New onset of congestive heart failure. CARDIAC RISK FACTORS 1. Male gender. 2. Advanced age. 3. Hypertension. 4. Family history of heart disease. PROCEDURE: After signing informed consent, patient underwent a Lexiscan pharmaceutical stress test with nuclear myocardial perfusion imaging. RESTING HEART RATE: 80. PEAK HEART RATE: 113. RESTING BLOOD PRESSURE: 118/89. PEAK BLOOD PRESSURE: 140/87. Lexiscan was infused per protocol. Patient experienced brief shortness of breath and flushing, no chest pain or other symptoms. Oxygen saturation remained greater than 95% on room air throughout the entire test. RESTING EKG: Atrial fibrillation, rate 80-90, poor R-wave progression. EKG AT PEAK: No new ST segment or T-wave changes. SUMMARY 1. Abnormal resting EKG. 2. No ischemic changes by EKG criteria during this pharmaceutical stress test. 3. Nuclear images reported separately. 4. This patient's cardiac risk based on all the above: Moderate. TD: 07/01/2019 13:19 DEBBIE
--- NOTE | 2019-07-01 14:08 | Nuclear Medicine Report ---
Reason: New Cardiomyopathy Procedure Date: 07/01/2019 Accession Number: [id number] / [id number] Procedure: NM - Myocardial Perfusion STR/RST CPT Code: Final Report FULL RESULT: EXAM: SINGLE-ISOTOPE PHARMACOLOGICAL STRESS TEST WITH REGADENOSON. SINGLE-ISOTOPE AND ONE-DAY REST/STRESS MYOCARDIAL PERFUSION SCANS WITH TOMOGRAPHIC IMAGING, QUANTITATIVE ANALYSIS, WALL MOTION ANALYSIS AND CALCULATION OF EJECTION FRACTION. EXAM DATE: 07/01/2019 12:51 PM. CLINICAL HISTORY: New cardiomyopathy. COMPARISON: None available. TECHNIQUE: After the intravenous administration of 11 mCi of Tc-99m sestamibi, a rest myocardial perfusion scan was done with tomography. Motion correction was applied when appropriate. After an appropriate delay, pharmacological stress was performed with the infusion of 0.4 mg regadenoson per protocol. According to protocol, 42.3 mCi of Tc-99m sestamibi was injected for stress myocardial perfusion scan. Motion correction was applied when appropriate. Gated tomographic images were obtained for wall motion analysis and computation of left ventricular ejection fraction. FINDINGS: On visual analysis, there is an apparent mild reversible defect in the inferolateral wall. There is a mild defect in the anteroseptal wall which appears similar between the rest and stress images. The computer suggests that the defects are much more severe than are appreciated on visual analysis with summed stress score 11 and summed difference score 5. Wall motion analysis demonstrates septal hypokinesis. The left ventricular end-diastolic volume is 90 cc. The left ventricular end-systolic volume is 56 cc. The left ventricular ejection fraction is calculated to be 38%. IMPRESSION: 1. Mild reversible perfusion defect in the inferolateral wall. Mild fixed defect in the anteroseptal wall. 2. Left ventricular ejection fraction of 38%. 3. Septal hypokinesis. 4. Normal left ventricular cavity size, no change with stress. Please correlate findings with stress ECG tracings and procedure notes. RADIA
[2019-07-01 15:50] VITALS: BP 119/73
--- NOTE | 2019-07-01 15:52 | Discharge Plan ---
Discharge Plan Problem Reviewed?: Yes Disposition: Home, Self Care Condition: Stable Prescriptions: Metoprolol Succinate [Toprol Xl] 25 mg PO BID #60 tablet Spironolactone [Aldactone] 25 mg PO DAILY #30 tablet Diet: Low Sodium (Low fat diet) Activity Restrictions: Activity as Tolerated Shower Restrictions: No Driving Restrictions: No Assistance Devices: Cane Weight Bearing: Full Weight Instruction Topics: Heart Failure, AFL/Afib, Atrial Fibrillation, CAD Health Concerns: You were admitted for treatment of a rapid heart rate in atrial fib-flutter. You had testing here that showed new congestive heart failure (CHF), and an abnormal stress test (indicating coronary artery disease). Some of your medications have been changed. The new prescriptions were electronically sent to [facility] in [place]. Please follow the new list of medications. You need a coronary angiogram due to the abnormal stress test results. Until that is done, you should do light activity, no lawn or garden work or heavy house work. You should see your PCP soon for hospital follow-up and to be referred soon to a Barrel Handler, who will follow you after the coronary angiogram. If you have new or worsening symptoms, call your PCP or awning assembler for advice, or come to the ER. Plan of Treatment: As above. Care Goals: Improvement in symptoms and stabilization are the goals. Assessment: The patient understands and is agreeable with the plan. No Smoking: If you smoke, Please STOP! Call for help. Follow-up with: Aminta Go MD [Primary Care Provider] -
--- NOTE | 2019-07-01 16:02 | DISCHARGE SUMMARY ---
Discharge Summary Admit Date: 06/30/19 Discharge Date: 07/01/19 Discharging Provider: Dr Rosita Johnson Primary Care Provider: Dr Aminta Go Code Status: Attempt Resuscitation Condition at Discharge: Poor Discharge Disposition: 01 Home, Self Care - DIAGNOSES Admission Diagnoses: 1) Aflutter with RVR 2) New onset of CHF 3) Hypothyroidism 4) Acute kidney Injury 5) Chronic low back pain 6) HTN 7) Obstructive sleep apnea, on CPAP 8) Elevated troponins 9) Abnormal EKG Discharge Diagnoses with Status of Each Condition: See below - HPI History of Present Illness: This is a very pleasant 73 y/o white male with a history of HTN, sleep apnea on a CPAP mask at night, hypothyroidism, chronic Afib diagnosed about 8 years ago and maintained on Warfarin, but never had any cardiac work-up when it was found (such as stress test or Echo), gouty attacks in the knees, and chronic low back pain from compressed discs and spinal disease. He retired last week and the same day had an epidural steroid injection for treatment of his back problem, and had also been on Meloxicam for 2 weeks on a schedule of b.i.d. (not prn), plus had restarted 6 days of Colchicine, for a gouty attack of his knees (which occurred because he ran out of his usual Colchicine meds and developed a flare-up). On the day of his alf he noticed rapid palpitations that lasted for 6 days and were causing extreme fatigue. He presented to the ER due to that, and was found to be in atrial flutter with rapid ventricular rate of 140, had BNP elevated at 345, creatinine elevated at 1.5, INR therapeutic at 2.9. His EKG (after the heart rate had slowed) showed inferior Q waves. He was given iv Metoprolol with improvement in heart rate to 70-80 in aflutter, got iv Lasix, and he was admitted for management of new onset CHF and work-up of elevated troponins (76>> 86>> 155), without chest pain complaints. - HOSPITAL COURSE Hospital Course: 1) Aflutter with RVR His heart rate remained controlled in Afib, after the iv Metoprolol was given, since his oral Metoprolol Tartrate was changed to long-acting Metoprolol Succinate 25 mg bid. He was discharged with this change. He was offered a change to a NOAC instead of Coumadin, and declined this, stating that he liked the control of his anticoagulation and did not mind having repeat INR blood tests. He had a stable TSH which ruled out thyroid excess as the cause of the RVR. 2) New onset of CHF He underwent an Echo here. This showed global LV hypokinesis with LVEF 35%. He got 2 days of iv Lasix and had a 2L (-) fluid balance. He was started on daily Spironolactone and his B-uziel and Lisinopril were continued. He had an oxygen saturation walking test on room air, and did not desaturate to need a home oxygen order. He underwent a pharmaceutical stress test, to evaluate for CAD as a cause of the CHF. There was brief SOB but no chest pain during the test, he did not have EKG changes of ischemia, but his nuclear scan result showed an area of fixed defect in the olivia-septal wall, and mild reversible (ischemic) defect of the infero-lateral wall. The EF was 38%. He was advised that he needed an angiogram for CAD evaluation, which could be done as an outpatient and he should have a Sports Medicine Physician. He was agreeable. The etiology of his new diagnosis of systolic heart failure was likely to be from CAD and/or tachycardia-induced heart failure, on top of being on high amounts of NSAIDs in the past 2 weeks. He was advised to stop the Meloxicam. He was discharged on new Metoprolol Succinate and new Spironolactone, and his Amlodipine was stopped and Lisinopril continued. His discharge instructions advised light activity until he has the coronary angiogram. 3) Hypothyroidism His TSH was 1.77. His home Synthroid dose was continued. 4) Acute kidney Injury The etiology was likely from venous congestion caused by the NSAID use. With diuresis, the creat improved from 1.5 to 1.3 at discharge. 5) Chronic low back pain His Pregalbin was continued. The Meloxicam was stopped. 6) HTN The medication changes above kept his BP under control. 7) Obstructive sleep apnea, on CPAP Since he drove himself to the hospital and lives alone, he did not have his home CPAP device to use while briefly here. 8) Elevated troponins The hs-troponin trend was 77>> 86>> 155>> 171>> 140. This was felt to be from demand-ischemia from the tachycardia, since the EKG did not definitely show new Q waves. 9) Abnormal EKG The initial EKG in rapid aflutter showed poor R wave progression. A repeat EKG the next day, at the stress test, did not show new Q waves anywhere. 10) Gouty arthritis He was kept on his Colchicine for treating the knee pain. - ALLERGIES Allergies/Adverse Reactions: Allergies Allergy/AdvReac Type Severity Reaction Status Date / Time Sulfa (Sulfonamide Allergy Unknown Verified 06/30/19 10:02 Antibiotics) - MEDICATIONS Home Medications: Ambulatory Orders Medication Instructions Recorded Confirmed Colchicine 0.6 mg PO BID #20 tablet 07/09/17 06/30/19 Levothyroxine [Synthroid] 175 mcg PO QDAC 07/09/17 06/30/19 Warfarin [Coumadin] 5 mg PO 1700 07/09/17 06/30/19 Pregabalin 75 mg PO BID 06/30/19 06/30/19 lisinopriL [Lisinopril] 2.5 mg PO DAILY 06/30/19 06/30/19 Metoprolol Succinate [Toprol Xl] 25 mg PO BID #60 tablet 07/01/19 Spironolactone [Aldactone] 25 mg PO DAILY #30 tablet 07/01/19 - PHYSICAL EXAM AT DISCHARGE General Appearance: positive: No acute distress, Alert Eyes Bilateral: positive: Normal inspection, EOMI ENT: positive: ENT inspection nml, No signs of dehydration Neck: positive: Nml inspection, No JVD Respiratory: positive: No respiratory distress, Breath sounds nml Cardiovascular: positive: No murmur, Irregularly irregular Abdomen: positive: Non-tender, No distention Skin: positive: Color nml Extremities: positive: No pedal edema, Other (Pain in both knees when he walks) Neurologic/Psychiatric: positive: Oriented x3, Other (Non-focal) - LABS Result Diagrams: 06/30/19 10:23 07/01/19 04:50 - DIAGNOSTIC IMAGING Diagnostic Imaging Results: Final report reviewed - FOLLOW UP Follow Up: See PCP in next few days, needs a Sports Medicine Physician and angiogram referral. - TIME SPENT Time Spent in Discharge (Minutes): 60
[2019-07-02] MEDS ORDERED: LEVOTHYROXINE 25 MCG TABLET PO SCH (07:00)
[2019-07-02] MEDS ORDERED: COLCHICINE 0.6 MG TABLET PO SCH (09:00)
== END 2019-07-01 16:10 | disposition home or self-care (01) | DRG 292 ==
LOC: ED 09:52 → MS2 13:03 → OBSVTOIN 17:08
PROVIDERS: ADMIT Internal Medicine; ATTEND Internal Medicine
DX: I11.0 Hypertensive heart disease with heart failure (principal); I50.9 Heart failure, unspecified; I48.20 Chronic atrial fibrillation, unspecified; I48.92 Unspecified atrial flutter; I24.8 Other forms of acute ischemic heart disease; I50.20 Unspecified systolic (congestive) heart failure; I25.10 Atherosclerotic heart disease of native coronary artery without angina pectoris; G47.33 Obstructive sleep apnea (adult) (pediatric); R79.89 Other specified abnormal findings of blood chemistry; R94.31 Abnormal electrocardiogram [ECG] [EKG]; E03.9 Hypothyroidism, unspecified; G89.29 Other chronic pain; M48.00 Spinal stenosis, site unspecified; M10.9 Gout, unspecified; T39.391A Poisoning by other nonsteroidal anti-inflammatory drugs [NSAID], accidental (unintentional), initial encounter; Y92.009 Unspecified place in unspecified non-institutional (private) residence as the place of occurrence of the external cause; Z79.01 Long term (current) use of anticoagulants; Z82.49 Family history of ischemic heart disease and other diseases of the circulatory system
CPT/HCPCS: 36415; 71045; 78452; 80048; 80053; 83690; 83735; 83880; 84443; 84484; 85025; 85610; 93005; 93017; 93306; 96374; 96375; 99284; 99285; A9270; A9500; G0378; J2785

== ENCOUNTER 2019-08-14 08:18 | Outpatient (CLI) | payer MEDICARE, BC ==
[2019-08-14 08:47] LABS: CALCIUM 8.6 mg/dL (8.5-10.3); CREATININE 1.5 mg/dL (0.6-1.2)
== END 2019-08-14 08:19 | disposition home or self-care (01) ==
LOC: LAB 08:18
PROVIDERS: ATTEND Internal Medicine Cardiovascular Disease
DX: I50.9 Heart failure, unspecified (principal)
CPT/HCPCS: 36415; 80048

== ENCOUNTER 2019-08-18 09:54 | Outpatient (CLI) | payer MEDICARE, BC | END 2019-08-18 09:55 | disposition home or self-care (01) | LOC: LAB 09:54 | PROVIDERS: ATTEND Nurse Practitioner | DX: D64.9 Anemia, unspecified (principal); I25.10 Atherosclerotic heart disease of native coronary artery without angina pectoris | CPT/HCPCS: 36415; 82728 ==

== ENCOUNTER 2019-09-15 14:55 | Outpatient (CLI) | payer MEDICARE, BC | END 2019-09-15 14:56 | disposition home or self-care (01) | LOC: LAB 14:55 → COV 14:56 | PROVIDERS: ATTEND Nurse Practitioner | DX: I25.10 Atherosclerotic heart disease of native coronary artery without angina pectoris (principal) | CPT/HCPCS: 81599 ==

== ENCOUNTER 2019-10-01 10:50 | Outpatient (CLI) | payer MEDICARE, BC | END 2019-10-01 10:51 | disposition home or self-care (01) | LOC: LAB.S 10:50 | PROVIDERS: ATTEND Internal Medicine | DX: R79.1 Abnormal coagulation profile (principal); Z79.01 Long term (current) use of anticoagulants | CPT/HCPCS: 36415; 85610 ==

== ENCOUNTER 2019-10-13 13:16 | Outpatient (CLI) | payer MEDICARE, BC ==
[2019-10-13 14:46] LABS: INR 1.5 (0.8-1.2); PT - PROTHROMBIN TIME 16.6 secs (9.9-12.6)
== END 2019-10-13 13:17 | disposition home or self-care (01) ==
LOC: LAB.S 13:16
PROVIDERS: ATTEND Internal Medicine
DX: R79.1 Abnormal coagulation profile (principal); Z79.01 Long term (current) use of anticoagulants
CPT/HCPCS: 36415; 85610

== ENCOUNTER 2020-01-28 14:27 | Outpatient (CLI) | payer MEDICARE, BC ==
[2020-01-28 15:11] LABS: CALCIUM 8.9 mg/dL (8.5-10.3); CREATININE 2.2 mg/dL (0.6-1.2); MAGNESIUM 1.3 mg/dL (1.7-2.8)
== END 2020-01-28 14:28 | disposition home or self-care (01) ==
LOC: LAB 14:27
PROVIDERS: ATTEND Nurse Practitioner
DX: I25.119 Atherosclerotic heart disease of native coronary artery with unspecified angina pectoris (principal); I25.10 Atherosclerotic heart disease of native coronary artery without angina pectoris; Z20.828 Contact with and (suspected) exposure to other viral communicable diseases
CPT/HCPCS: 36415; 80048; 83735; U0004

== ENCOUNTER 2020-01-29 14:41 | Inpatient (IN) | payer MEDICARE, BC ==
[2020-01-29] MEDS ORDERED: DIGOXIN 500 MCG/2 ML AMP IVP STA (15:29)
[2020-01-29] MEDS ORDERED: SODIUM CHLORIDE 0.9% 500 ML IV STA (15:29)
--- NOTE | 2020-01-29 15:31 | ED Physician Documentation ---
PD HPI CHEST PAIN - Stated complaint Stated Complaint: WEAK/SOA - Chief complaint Chief Complaint: Cardiac - History obtained from History obtained from: Patient - Additional information Additional information: 74-year-old gentleman has chronic atrial fibrillation, no longer anticoagulated because he had a watchman procedure about 6 months ago. After the procedure had some difficulties with rate control, but they were able to get a controlled with metoprolol. He has been weaning off his metoprolol but now has higher heart rate and noticed his blood pressure being low at 70/50 at home today. He feels generally okay, just fatigued. No energy. No significant chest pain or trouble breathing. Review of Systems Constitutional: reports: Fatigue. denies: Fever, Chills Cardiac: denies: Chest pain / pressure, Palpitations, Pedal edema Respiratory: denies: Dyspnea, Cough GI: denies: Abdominal Pain PD PAST MEDICAL HISTORY - Past Medical History Cardiovascular: Hypertension, Coronary artery disease, Peripheral Vascular Disease, Atrial fibrillation Respiratory: None Neuro: None Endocrine/Autoimmune: HyPOthyroidism Musculoskeletal: Gout - Past Surgical History Cardiovascular: CABG - Present Medications Home Medications: Ambulatory Orders Medication Instructions Recorded Confirmed Colchicine 0.6 mg PO BID #20 tablet 07/09/17 06/30/19 Levothyroxine [Synthroid] 175 mcg PO QDAC 07/09/17 06/30/19 Pregabalin 75 mg PO BID 06/30/19 06/30/19 lisinopriL [Lisinopril] 2.5 mg PO DAILY 06/30/19 06/30/19 Metoprolol Succinate [Toprol Xl] 25 mg PO BID #60 tablet 07/01/19 Aspirin 01/29/20 Atorvastatin Calcium 01/29/20 Clopidogrel [Plavix] 01/29/20 Colchicine 01/29/20 HYDROmorphone [Dilaudid] 4 01/29/20 Magnesium Oxide [Magnesium] 01/29/20 Potassium Chloride [Micro-K] 01/29/20 - Allergies Allergies/Adverse Reactions: Allergies Allergy/AdvReac Type Severity Reaction Status Date / Time Sulfa (Sulfonamide Allergy Unknown Verified 06/30/19 10:02 Antibiotics) - Social History Does the pt smoke?: No Smoking Status: Never smoker Does the pt drink ETOH?: No Does the pt have substance abuse?: No - Immunizations Immunizations are current?: Yes - POLST Patient has POLST: No PD ED PE NORMAL - Vitals Vital signs reviewed: Yes - General General: Alert and oriented X 3, No acute distress - HEENT HEENT: PERRL, EOMI - Neck Neck: Supple, no meningeal sign, No bony TTP - Cardiac Cardiac: Other - Respiratory Respiratory: No respiratory distress, Clear bilaterally - Abdomen Abdomen: Non tender - Back Back: No CVA TTP, No spinal TTP - Derm Derm: Normal color, Warm and dry - Extremities Extremities: No deformity, No tenderness to palpate, No edema, No calf tenderness / cord - Neuro Neuro: Alert and oriented X 3, Normal speech Results - Vitals Vitals: Vital Signs - 24 hr 01/29/20 01/29/20 01/29/20 14:56 15:19 15:30 Temperature 36.2 C L 36.7 C 36.4 C L Heart Rate 85 121 H 87 Respiratory 18 16 14 Rate Blood Pressure 85/60 L 96/73 99/71 O2 Saturation 98 100 98 01/29/20 01/29/20 16:00 16:30 Temperature 36.8 C 36.6 C Heart Rate 66 72 Respiratory 20 12 Rate Blood Pressure 98/61 109/64 O2 Saturation 99 98 Oxygen O2 Source Room air - EKG (time done) 1503 Rate: Rate (enter#) (100) Rhythm: Atrial flutter, Atrial fibrillation [place]: Normal QRS: LVH Ischemia: Normal ST segments Computer interpretation: Agree with computer - Labs Labs: Laboratory Tests 01/29/20 01/29/20 01/29/20 15:59 15:59 15:59 WBC 5.3 RBC 4.21 L Hgb 12.3 L Hct 39.0 L MCV 92.6 MCH 29.2 MCHC 31.5 L RDW 16.0 H Plt Count 171 MPV 10.9 Neut # (Auto) 2.3 Lymph # (Auto) 1.9 [place] # (Auto) 0.6 Eos # (Auto) 0.5 Baso # (Auto) 0.0 Absolute Nucleated RBC 0.00 Nucleated RBC % 0.0 Sodium 137 Potassium 5.2 H Chloride 109 Carbon Dioxide 18 L Anion Gap 10.0 BUN 53 H Creatinine 2.2 H Estimated GFR (MDRD) 29 L Glucose 86 Calcium 8.9 Total Bilirubin 0.7 AST 52 H ALT 54 Alkaline Phosphatase 109 Total Protein 8.0 Albumin 3.9 Globulin 4.1 Albumin/Globulin Ratio 1.0 Lipase 37 TSH 0.35 PD MEDICAL DECISION MAKING - ED course ED course: 74-year-old gentleman presents with A. fib with borderline RVR, on the monitor his rates are usually in the 1 teens. He is hypotensive on multiple blood pressure medicines as well. Plan to load him with digoxin and give him a small fluid bolus. There is no evidence of fluid overload. If that is effective we can send him home on the digoxin and stop his lisinopril. After he was administered some IV fluids and some IV digoxin, his vital signs improved significantly. On further history he has had diarrhea for a month. My suspicion is this because the acute kidney injury we are seeing on his labs. He was agreeable to observation for IV fluids and serial labs and spoke with Dr. Watson for same at 4:30 PM. Departure - Departure Disposition: ED Place in Observation Clinical Impression: OMAIRA (acute kidney injury) Diarrhea Qualifiers: Diarrhea type: unspecified type Qualified Code(s): R19.7 - Diarrhea, unspecified Atrial fibrillation Qualifiers: Atrial fibrillation type: permanent Qualified Code(s): I48.21 - Permanent atrial fibrillation Condition: Stable Discharge Date/Time: 01/29/20 17:19
[2020-01-29 16:06] LABS: BASOPHILS % (AUTO) 0.6 %; EOSINOPHILS # (AUTO) 0.5 10^3/uL (0.0-0.7); EOSINOPHILS % (AUTO) 8.7 %; HGB - HEMOGLOBIN 12.3 g/dL (14.0-18.0); LYMPHOCYTES # (AUTO) 1.9 10^3/uL (1.5-3.5); LYMPHOCYTES % (AUTO) 36.5 %; MEAN CORPUSCULAR HEMOGLOBIN 29.2 pg (27.0-31.0); MEAN CORPUSCULAR HGB CONC 31.5 g/dL (32.0-36.0); MEAN CORPUSCULAR VOLUME 92.6 fL (80.0-94.0); MEAN PLATELET VOLUME 10.9 fL (7.4-11.4); MONOCYTES # (AUTO) 0.6 10^3/uL (0.0-1.0); NEUTROPHILS # (AUTO) 2.3 10^3/uL (1.5-6.6); PLT - PLATELET COUNT 171 10^3/uL (130-450); RED BLOOD COUNT 4.21 10^6/uL (4.70-6.10); WHITE BLOOD COUNT 5.3 x10^3/uL (4.8-10.8)
[2020-01-29 16:22] LABS: ALBUMIN 3.9 g/dL (3.2-5.5); BILIRUBIN,TOTAL 0.7 mg/dL (0.2-1.0); CALCIUM 8.9 mg/dL (8.5-10.3); CREATININE 2.2 mg/dL (0.6-1.2)
[2020-01-29] MEDS ORDERED: SODIUM CHLORIDE 0.9% 1,000 ML IV STA (16:25)
[2020-01-29] MEDS ORDERED: ONDANSETRON 4 MG/2 ML VIAL IVP PRN (16:35)
[2020-01-29] MEDS ORDERED: SODIUM CHLORIDE FLUSH 0.9% 10 ML SYRINGE IVP PRN (16:35)
--- NOTE | 2020-01-29 16:58 | HISTORY & PHYSICAL EXAMINATION ---
Chief Complaint - Chief Complaint Chief Complaint: low blood pressure History of Present Illness - Admitted From Admitted From:: ER - History Obtained From Records Reviewed: [facility] History obtained from: pt Exam Limitations: no - History of Present Illness HPI Comment/Other: This is a 74-year-old gentleman with a Past medical history significant for chronic atrial fibrillation with a watchman procedure and no longer ant icoagulated, Hypertension, history of CAD, heart failure, peripheral vascular disease, Hypothyroidism who present ER report he had low blood pressure at home. Patient report he had a blood pressure in the home 78/53. At that time he feels very fatigued, Cannot do anything. Patient also reported he had about 1 month of diarrhea. His stool is almost watery. He reported some chest discomfortable but not really chest pain. pt report he had Watchman procedure done about 6 months ago. After the procedure he had some difficulties to control his heart rate. but eventually it were able to get a controlled by metoprolol. Patient reported he had a 3 blood pressure medicine but he take the medicine off if he felt tired or fatigue. If he check his blood pressure is high and his pulse is high he will t genaro more metoprolol. In the ER, initially patient blood pressure was 85/60 with rapid heart 121. Willian pardo was given digoxin in ER. Patient was also given 1.5 L of intravenous IV fluids to rise patient blood pressure. Laboratory test was unremarkable except elevated creatinine 2.2, His baseline creatinine is 1.5. Patient is admitted for further medical management. Discussed the care goal with the patient, patient request full code. History - Past Medical History Cardiovascular: reports: Hypertension, Coronary artery disease, Peripheral Vascular Disease, Atrial fibrillation Respiratory: reports: None Neuro: reports: None Endocrine/Autoimmune: reports: HyPOthyroidism Musculoskeletal: reports: Gout MRSA Hx?: No - Past Surgical History Cardiovascular: reports: CABG - Family & Social History Family History: Mother: , Father: Family History Comment/Other: Patient reported his father from heart failure at age 73. His mother from heart attack at age 89. Social History Notes: Patient denies alcohol, smoking, drug issue.He had two sons in the [place] and [facility]. he is alone at [facility], His from cancer year and a half ago. - POLST Patient has POLST: No Meds/Allgy - Home Medications Home Medications: Ambulatory Orders Medication Instructions Recorded Confirmed Colchicine 0.6 mg PO BID #20 tablet 07/09/17 06/30/19 Levothyroxine [Synthroid] 175 mcg PO QDAC 07/09/17 06/30/19 Pregabalin 75 mg PO BID 06/30/19 06/30/19 lisinopriL [Lisinopril] 2.5 mg PO DAILY 06/30/19 06/30/19 Metoprolol Succinate [Toprol Xl] 25 mg PO BID #60 tablet 07/01/19 Aspirin 01/29/20 Atorvastatin Calcium 01/29/20 Clopidogrel [Plavix] 01/29/20 Colchicine 01/29/20 HYDROmorphone [Dilaudid] 4 01/29/20 Magnesium Oxide [Magnesium] 01/29/20 Potassium Chloride [Micro-K] 01/29/20 - Allergies Allergies/Adverse Reactions: Allergies Allergy/AdvReac Type Severity Reaction Status Date / Time Sulfa (Sulfonamide Allergy Unknown Verified 06/30/19 10:02 Antibiotics) Review of Systems - Constitutional Constitutional: denies: Fever, Chills, Diaphoresis, Night sweats - Eyes Eyes: denies: Pain, Vision loss, Dipolpia - Ears, Nose & Throat Ears, Nose & Throat: denies: Ear pain, Nasal discharge, Nosebleeds, Bleeding gums - Cardiovascular Cariovascular: denies: Irregular heart rate, Palpitations, Chest pain, Lightheadedness, Syncope, Exertional dyspnea - Respiratory Respiratory: denies: Cough, Sputum production, Wheezing, Hemoptysis, SOB at rest, SOB with exertion - Gastrointestinal Gastrointestinal: reports: Diarrhea. denies: Abdominal pain, Constipation, Rectal bleeding, Black stools, Bloody stools, Nausea, Vomiting - Genitourinary Genitourinary: denies: Dysuria - Musculoskeletal Musculoskeletal: denies: Muscle pain, Muscle aches, Joint swelling - Integumentary Integumentary: denies: Rash, Lesions - Neurological Neurological: denies: General weakness, Focal weakness, Headache, Dizziness, Numbness, Pre-existing deficit, Abnormal gait, Seizures, Incoordination, Slurred speech - Psychiatric Psychiatric: denies: Depression, Suicidal, Delusions, Homicidal - Endocrine Endocrine: denies: Polyuria - Hematologic/Lymphatic Hematologic/Lymphatic: denies: Anemia, Blood clots Exam - Vital Signs Vital Signs: Vital Signs x48h Temp Pulse Resp BP Pulse Ox 01/29/20 16:30 36.6 C 72 12 109/64 98 01/29/20 16:00 36.8 C 66 20 98/61 99 01/29/20 15:30 36.4 C L 87 14 99/71 98 01/29/20 15:19 36.7 C 121 H 16 96/73 100 01/29/20 14:56 36.2 C L 85 18 85/60 L 98 - Physical Exam General Appearance: positive: No acute distress, Alert. negative: Lethargic Eyes Bilateral: positive: Normal inspection, PERRL, No lid inflammation ENT: positive: ENT inspection nml, No signs of dehydration. negative: Purulent nasal drainage Neck: positive: Nml inspection, Trachea midline. negative: Thyromegaly, Tracheal deviation Respiratory: positive: Chest non-tender, No respiratory distress, Breath sounds nml. negative: Wheezes, Rales, Rhonchi Cardiovascular: positive: No murmur, Irregularly irregular. negative: Tachycardia, Bradycardia, Systolic murmur, Diastolic murmur Peripheral Pulses: positive: 2+ Abdomen: positive: Non-tender, No organomegaly, Nml bowel sounds, No distention. negative: Tenderness, Guarding, Rebound Back: positive: Nml inspection Skin: positive: Color nml, No rash, Warm, Dry. negative: Cyanosis, Diaphoresis, Pallor Extremities: positive: Non-tender, Full ROM, Nml appearance. negative: Calf tenderness Neurologic/Psychiatric: positive: Oriented x3, Motor nml, Sensation nml, Mood/affect nml. negative: Weakness, Sensory loss, Facial droop, Slurred/abnml speech, Depressed mood/affect Conclusion/Plan - Problem List (1) Hypotension Conclusion/Plan: Patient had hypotension in the ER, Initially he has 85/60. Patient take blood pressure meds in the home, Patient has diarrhea and dehydration. After the patient had resuscitation with intravenous IV fluids in ER, his systolic blood pressure return to around 100 .We will continue intravenous IV fluids, hold patient home blood pressure medicine now, Continue vital signs monitor. will check troponin (2) Atrial fibrillation with rapid ventricular response Conclusion/Plan: Patient still present borderline of A fibrillation with rapid ventricular response in the ER. Patient was given intravenous digoxin in the ER, now his pulse is controlled.Will hold patient home medication metoprolol because the patient blood pressure is low. We will resume according to vital signs monitor.Continue telemetry (3) OMAIRA (acute kidney injury) Conclusion/Plan: Patient creatinine is 2.2 today, His baseline creatinine is 1.5. it is likely prerenal. Patient was given 1 L IV fluids in the ER, will continue the patient on his IV fluids cautiously. Patient has a history of systolic heart failure. (4) Diarrhea Conclusion/Plan: Patient reported he have diarrhea for, We will check C. difficile, and stool culture. Continue intravenous IV fluids, Continue environmental laboratory technician Qualifiers: Diarrhea type: unspecified type Qualified Code(s): R19.7 - Diarrhea, unspecified (5) Systolic heart failure Conclusion/Plan: Patient had an echo done on 6 months ago which show patient had a 35 to 40% of EF. We will recheck echo, pt had hypotension. precaution of IVF volume.We will resume home medication as patient blood pressure stable. (6) Hx of gout Conclusion/Plan: Stable, we will resume colchicine as confirmed by pharmacy - Lab Results Fish Bones: 01/29/20 15:59 01/29/20 15:59 Core Measures - Anticipated LOS I expect patient to be DC'd or transferred within 96 hours.: Yes - DVT/VTE - Prophylaxis VTE/DVT Device ordered at admit?: Yes VTE/DVT Prophylaxis med ordered at admit?: Yes
[2020-01-29] MEDS ORDERED: LACTATED RINGERS 1,000 ML IV SCH ×2 (17:00→17:18)
[2020-01-29] MEDS: SODIUM CHLORIDE FLUSH 0.9% 10 ML SYRINGE IVP SCH (18:05)
[2020-01-29] MEDS: ACETAMINOPHEN 325 MG TABLET PO PRN (18:31)
[2020-01-29] MEDS ORDERED: METOPROLOL SUCCINATE 25 MG TABLET PO SCH (21:00)
[2020-01-29] MEDS: HEPARIN 5,000 UNIT/ML VIAL SUBQ SCH (21:06)
[2020-01-29] MEDS: VANCOMYCIN 125 MG CAPSULE PO SCH (22:42)
[2020-01-30] MEDS: ACETAMINOPHEN 325 MG TABLET PO PRN (00:51)
[2020-01-30] MEDS: SODIUM CHLORIDE FLUSH 0.9% 10 ML SYRINGE IVP SCH ×4 (01:27→23:46)
[2020-01-30] MEDS: HYDROmorphone 2 MG TABLET PO PRN ×3 (04:52→20:22)
[2020-01-30 06:23] LABS: BASOPHILS % (AUTO) 0.7 %; EOSINOPHILS # (AUTO) 0.4 10^3/uL (0.0-0.7); EOSINOPHILS % (AUTO) 8.3 %; HGB - HEMOGLOBIN 10.4 g/dL (14.0-18.0); LYMPHOCYTES # (AUTO) 1.2 10^3/uL (1.5-3.5); LYMPHOCYTES % (AUTO) 26.9 %; MEAN CORPUSCULAR HEMOGLOBIN 29.1 pg (27.0-31.0); MEAN CORPUSCULAR HGB CONC 31.5 g/dL (32.0-36.0); MEAN CORPUSCULAR VOLUME 92.2 fL (80.0-94.0); MEAN PLATELET VOLUME 11.2 fL (7.4-11.4); MONOCYTES # (AUTO) 0.5 10^3/uL (0.0-1.0); NEUTROPHILS # (AUTO) 2.2 10^3/uL (1.5-6.6); NEUTROPHILS % (AUTO) 51.9 %; PLT - PLATELET COUNT 121 10^3/uL (130-450); RED BLOOD COUNT 3.58 10^6/uL (4.70-6.10); RED CELL DISTRIBUTION WIDTH 15.9 % (12.0-15.0); WHITE BLOOD COUNT 4.3 x10^3/uL (4.8-10.8)
[2020-01-30 06:31] LABS: CALCIUM 8.8 mg/dL (8.5-10.3); CREATININE 1.8 mg/dL (0.6-1.2); MAGNESIUM 1.3 mg/dL (1.7-2.8); PHOSPHORUS 4.1 mg/dL (2.5-4.6)
[2020-01-30] MEDS ORDERED: MAGNESIUM OXIDE 400 MG TABLET PO ONE (08:00)
[2020-01-30] MEDS ORDERED: LACTATED RINGERS 1,000 ML IV SCH (08:00)
[2020-01-30] MEDS ORDERED: MAGNESIUM SULFATE 2 GRAM 2 GM/50 ML BAG IV ONE (08:00)
[2020-01-30] MEDS ORDERED: NON FORMULARY MED (Lisinopril [Lisinopril] 2.5 MG) PO SCH (09:00)
[2020-01-30] MEDS ORDERED: ASPIRIN CHEW 81 MG TABLET PO SCH (09:00)
--- NOTE | 2020-01-30 09:09 | PHARMACY PROGRESS NOTE ---
- Best Possible Medication History Admit Date and Time: 01/29/20 1635 Processed by: Pharmacy Medication History completed: Yes Patient Interview: Completed Secondary Source(s): Pharmacy records, Insurance records As the person ultimately responsible for medication therapy, providers are able to order a medication from an existing home medication list in [facility] via the "Reconcile Routine" prior to Confirmation of that medication by it desktop support specialist. Such practice is discouraged except when the physician, in their clinical judgment, deems that a medical need exists for a medication without regard to previous use.
[2020-01-30] MEDS: ASPIRIN CHEW 81 MG TABLET PO SCH (09:19)
[2020-01-30] MEDS: VANCOMYCIN 125 MG CAPSULE PO SCH ×4 (09:20→20:24)
[2020-01-30] MEDS: METOPROLOL SUCCINATE 25 MG TABLET PO SCH (09:20)
[2020-01-30] MEDS: CLOPIDOGREL 75 MG TABLET PO SCH (09:20)
[2020-01-30] MEDS: HEPARIN 5,000 UNIT/ML VIAL SUBQ SCH ×2 (09:21→20:18)
[2020-01-30] MEDS: PREGABALIN 25 MG CAPSULE PO SCH ×3 (09:47→22:56)
--- NOTE | 2020-01-30 10:57 | PROVIDER PROGRESS NOTE ---
Subjective - Prog Note Date Prog Note Date: 01/30/20 - Subjective Subjective: He reports feeling much better compared to yesterday. He reports having 2 bowel movements yesterday but none today since he started oral vancomycin. Reports no chest pain or dyspnea. He has not been ambulating much quite yet. Current Medications - Current Medications Current Medications: Active Medications Acetaminophen (Tylenol) 650 mg PO Q4HR PRN PRN Reason: Pain 1 to 4 Last Admin: 01/30/20 00:51 Dose: 650 mg Documented by: Aspirin (St Parmjit Aspirin) 162 mg PO DAILY [facility] Last Admin: 01/30/20 09:19 Dose: 162 mg Documented by: Atorvastatin Calcium (Lipitor) 80 mg PO QPM [facility] Clopidogrel Bisulfate (Plavix) 75 mg PO DAILY [facility] Last Admin: 01/30/20 09:20 Dose: 75 mg Documented by: Heparin Sodium (Porcine) () 5,000 unit SUBQ BID [facility] Last Admin: 01/30/20 09:21 Dose: 5,000 unit Documented by: Hydromorphone HCl (Dilaudid) 4 mg PO Q6HR PRN PRN Reason: Severe Pain Last Admin: 01/30/20 11:25 Dose: 4 mg Documented by: Lactated Ringer's (Lr) 1,000 mls @ 100 mls/hr IV .Q10H [facility] Last Infusion: 01/30/20 10:19 Dose: 100 mls/hr Documented by: Levothyroxine Sodium (Synthroid) 100 mcg PO QDAC [facility] Levothyroxine Sodium (Synthroid) 75 mcg PO QDAC [facility] Lisinopril (Zestril) 2.5 mg PO DAILY [facility] Metoprolol Succinate (Toprol Xl) 25 mg PO DAILY [facility] Last Admin: 01/30/20 09:20 Dose: 25 mg Documented by: Ondansetron HCl (Zofran Inj) 4 mg IVP Q6HR PRN PRN Reason: Nausea / Vomiting Pregabalin (Lyrica) 75 mg PO TID [facility] Last Admin: 01/30/20 09:47 Dose: Not Given Documented by: Sodium Chloride (Normal Saline Flush 0.9%) 10 ml IVP PRN PRN PRN Reason: NEEDED PER PROVIDER ORDERS Last Admin: 01/30/20 07:47 Dose: 10 ml Documented by: Sodium Chloride (Normal Saline Flush 0.9%) 10 ml IVP 0100,0900,1700 [facility] Last Admin: 01/30/20 09:28 Dose: Not Given Documented by: Vancomycin HCl (Vancocin) 125 mg PO QID [facility] Last Admin: 01/30/20 12:24 Dose: 125 mg Documented by: Pregabalin 75 mg PO TID 06/30/19 lisinopriL [Lisinopril] 2.5 mg PO DAILY 06/30/19 Aspirin 162 mg PO DAILY 01/29/20 Atorvastatin Calcium 80 mg PO QPM 01/29/20 Clopidogrel [Plavix] 75 mg PO DAILY 01/29/20 HYDROmorphone [Dilaudid] 2 - 4 mg PO QID MDD 14 MG 01/29/20 Magnesium Oxide [Magnesium] 400 mg PO QDBREAKFAST 01/29/20 Potassium Chloride [Micro-K] 10 meq PO QDBREAKFAST 01/29/20 Colchicine [Colcrys] 0.6 mg PO BID 01/30/20 Furosemide [Lasix] 40 mg PO DAILY 01/30/20 Levothyroxine Sodium [Synthroid] 175 mcg PO QDAC 01/30/20 Metoprolol Tartrate [Lopressor] 25 mg PO BID 01/30/20 Pantoprazole [Protonix] 40 mg PO QDAC 01/30/20 Objective - Vital Signs/Intake & Output Reviewed Vital Signs: Yes Vital Signs: Vital Signs x48h Temp Pulse Resp BP Pulse Ox 01/30/20 08:03 36.6 C 63 18 106/59 L 100 01/30/20 04:03 37.1 C 64 16 108/52 L 98 Intake & Output: Intake & Output 01/27/20 01/28/20 01/29/20 01/30/20 23:59 23:59 23:59 23:59 Intake Total 1500 1441.667 Output Total 700 Balance 1500 741.667 - Objective General Appearance: positive: No acute distress Eyes Bilateral: positive: Normal inspection, Conjunctivae nml ENT: positive: ENT inspection nml Neck: positive: Nml inspection Respiratory: positive: No respiratory distress. negative: Wheezes, Rales Cardiovascular: positive: Irregularly irregular. negative: Tachycardia, Bradycardia, Systolic murmur Abdomen: positive: Non-tender, No distention, Tenderness. negative: Guarding, Rebound Skin: positive: Warm, Dry Extremities: positive: Pedal edema (Trace pitting edema in the bilateral lower extremities.), Other (There is an area of erythema over the medial aspect of his left felder. He states this is chronic.) Neurologic/Psychiatric: positive: Oriented x3, Motor nml - Lab Results Fish Bones: 01/30/20 06:04 01/30/20 06:04 Other Labs: Lab Results x24hrs 01/30/20 01/30/20 01/29/20 Range/Units 06:04 06:04 22:21 WBC 4.3 L (4.8-10.8) x10^3/uL RBC 3.58 L (4.70-6.10) 10^6/uL Hgb 10.4 L (14.0-18.0) g/dL Hct 33.0 L (42.0-52.0) % MCV 92.2 (80.0-94.0) fL MCH 29.1 (27.0-31.0) pg MCHC 31.5 L (32.0-36.0) g/dL RDW 15.9 H (12.0-15.0) % Plt Count 121 L (130-450) 10^3/uL MPV 11.2 (7.4-11.4) fL Neut # (Auto) 2.2 (1.5-6.6) 10^3/uL Lymph # (Auto) 1.2 L (1.5-3.5) 10^3/uL Cavalier # (Auto) 0.5 (0.0-1.0) 10^3/uL Eos # (Auto) 0.4 (0.0-0.7) 10^3/uL Baso # (Auto) 0.0 (0.0-0.1) 10^3/uL Absolute Nucleated RBC 0.00 x10^3/uL Nucleated RBC % 0.0 /100WBC Sodium 139 (135-145) mmol/L Potassium 5.0 (3.5-5.0) mmol/L Chloride 118 H (101-111) mmol/L Carbon Dioxide 15 L (21-32) mmol/L Anion Gap 6.0 (6-13) BUN 44 H (6-20) mg/dL Creatinine 1.8 H (0.6-1.2) mg/dL Estimated GFR (MDRD) 37 L (>89) Glucose 88 (70-100) mg/dL Calcium 8.8 (8.5-10.3) mg/dL Phosphorus 4.1 (2.5-4.6) mg/dL Magnesium 1.3 L (1.7-2.8) mg/dL Total Bilirubin (0.2-1.0) mg/dL AST (10-42) IU/L ALT (10-60) IU/L Alkaline Phosphatase (42-121) IU/L Troponin I High Sens 22.5 H* (2.3-19.7) ng/L Total Protein (6.7-8.2) g/dL Albumin (3.2-5.5) g/dL Globulin (2.1-4.2) g/dL Albumin/Globulin Ratio (1.0-2.2) Lipase (22-51) U/L TSH (0.34-5.60) uIU/mL Stl C. diff Tox B Gene (NEGATIVE) 01/29/20 01/29/20 01/29/20 Range/Units 18:28 15:59 15:59 WBC (4.8-10.8) x10^3/uL RBC (4.70-6.10) 10^6/uL Hgb (14.0-18.0) g/dL Hct (42.0-52.0) % MCV (80.0-94.0) fL MCH (27.0-31.0) pg MCHC (32.0-36.0) g/dL RDW (12.0-15.0) % Plt Count (130-450) 10^3/uL MPV (7.4-11.4) fL Neut # (Auto) (1.5-6.6) 10^3/uL Lymph # (Auto) (1.5-3.5) 10^3/uL Cavalier # (Auto) (0.0-1.0) 10^3/uL Eos # (Auto) (0.0-0.7) 10^3/uL Baso # (Auto) (0.0-0.1) 10^3/uL Absolute Nucleated RBC x10^3/uL Nucleated RBC % /100WBC Sodium (135-145) mmol/L Potassium (3.5-5.0) mmol/L Chloride (101-111) mmol/L Carbon Dioxide (21-32) mmol/L Anion Gap (6-13) BUN (6-20) mg/dL Creatinine (0.6-1.2) mg/dL Estimated GFR (MDRD) (>89) Glucose (70-100) mg/dL Calcium (8.5-10.3) mg/dL Phosphorus (2.5-4.6) mg/dL Magnesium (1.7-2.8) mg/dL Total Bilirubin (0.2-1.0) mg/dL AST (10-42) IU/L ALT (10-60) IU/L Alkaline Phosphatase (42-121) IU/L Troponin I High Sens 21.1 H* (2.3-19.7) ng/L Total Protein (6.7-8.2) g/dL Albumin (3.2-5.5) g/dL Globulin (2.1-4.2) g/dL Albumin/Globulin Ratio (1.0-2.2) Lipase (22-51) U/L TSH 0.35 (0.34-5.60) uIU/mL Stl C. diff Tox B Gene POSITIVE A* (NEGATIVE) 01/29/20 01/29/20 Range/Units 15:59 15:59 WBC 5.3 (4.8-10.8) x10^3/uL RBC 4.21 L (4.70-6.10) 10^6/uL Hgb 12.3 L (14.0-18.0) g/dL Hct 39.0 L (42.0-52.0) % MCV 92.6 (80.0-94.0) fL MCH 29.2 (27.0-31.0) pg MCHC 31.5 L (32.0-36.0) g/dL RDW 16.0 H (12.0-15.0) % Plt Count 171 (130-450) 10^3/uL MPV 10.9 (7.4-11.4) fL Neut # (Auto) 2.3 (1.5-6.6) 10^3/uL Lymph # (Auto) 1.9 (1.5-3.5) 10^3/uL Cavalier # (Auto) 0.6 (0.0-1.0) 10^3/uL Eos # (Auto) 0.5 (0.0-0.7) 10^3/uL Baso # (Auto) 0.0 (0.0-0.1) 10^3/uL Absolute Nucleated RBC 0.00 x10^3/uL Nucleated RBC % 0.0 /100WBC Sodium 137 (135-145) mmol/L Potassium 5.2 H (3.5-5.0) mmol/L Chloride 109 (101-111) mmol/L Carbon Dioxide 18 L (21-32) mmol/L Anion Gap 10.0 (6-13) BUN 53 H (6-20) mg/dL Creatinine 2.2 H (0.6-1.2) mg/dL Estimated GFR (MDRD) 29 L (>89) Glucose 86 (70-100) mg/dL Calcium 8.9 (8.5-10.3) mg/dL Phosphorus (2.5-4.6) mg/dL Magnesium (1.7-2.8) mg/dL Total Bilirubin 0.7 (0.2-1.0) mg/dL AST 52 H (10-42) IU/L ALT 54 (10-60) IU/L Alkaline Phosphatase 109 (42-121) IU/L Troponin I High Sens (2.3-19.7) ng/L Total Protein 8.0 (6.7-8.2) g/dL Albumin 3.9 (3.2-5.5) g/dL Globulin 4.1 (2.1-4.2) g/dL Albumin/Globulin Ratio 1.0 (1.0-2.2) Lipase 37 (22-51) U/L TSH (0.34-5.60) uIU/mL Stl C. diff Tox B Gene (NEGATIVE) ABX Reporting Has patient been on IV antibiotics over the past 48 hours?: No Assessment/Plan - Problem List (1) Hypotension Impression: He was quite hypotensive yesterday with systolic in the 70s and 80s. This has improved with IV fluids. Blood pressure today has been in the low 100s. At this time, we will discontinue the IV fluids and resume his home heart failure medications. We will observe him overnight to ensure that his blood pressure can tolerate this and he has no further episodes of hypotension. If he is stable in the morning then he can be discharged. (2) C. difficile diarrhea Impression: This is likely why he has been having diarrhea for the past month which caused him to be dehydrated. This has improved on oral vancomycin. We will continue this for total of 10 days. (3) Acute kidney injury superimposed on CKD Impression: Creatinine has improved and today it is 1.8 compared to 2.2 yesterday. His baseline is approximately 1.5. We will discontinue the IV fluids today and resume his lisinopril in the morning. (4) Chronic systolic heart failure Impression: Ejection fraction in the past was 35%. He is on appropriate medical therapy with metoprolol, lisinopril. We will resume his metoprolol today but hold lisinopril until tomorrow given his acute kidney injury. He currently appears euvolemic. We will likely discontinue his Lasix on discharge given the C. difficile until he follows up with his primary care provider in a few days. (5) Hyperchloremic acidosis Impression: This is likely due to the saline he received yesterday and acute kidney injury. His bicarbonate is down to 15 today. The saline has been discontinued and he was given lactated Ringer's for a few hours this morning. IV fluids have since been discontinued. We will recheck a BMP tomorrow to ensure his bicarbonate is improving. (6) Atrial fibrillation Impression: He is currently rate controlled. We have resumed his home metoprolol. He is not on anticoagulation given he has a watchman device. Qualifiers: Atrial fibrillation type: permanent Qualified Code(s): I48.21 - Permanent atrial fibrillation (7) PVD (peripheral vascular disease) Impression: Stable. We will continue his home aspirin and Plavix. He is scheduled for intervention this Saturday with vascular surgery at [address]. I asked the patient to notify his surgeon about the C. difficile as this elective procedure may need to be delayed. (8) Peripheral neuropathy Impression: Stable. Continue with home Lyrica.
[2020-01-30] MEDS ORDERED: ATORVASTATIN 40 MG TABLET PO SCH (21:00)
[2020-01-31] MEDS: HYDROmorphone 2 MG TABLET PO PRN ×2 (02:30→08:22)
[2020-01-31 05:14] LABS: BASOPHILS % (AUTO) 0.7 %; EOSINOPHILS # (AUTO) 0.5 10^3/uL (0.0-0.7); EOSINOPHILS % (AUTO) 9.4 %; LYMPHOCYTES # (AUTO) 1.7 10^3/uL (1.5-3.5); LYMPHOCYTES % (AUTO) 31.1 %; MEAN CORPUSCULAR HEMOGLOBIN 29.4 pg (27.0-31.0); MEAN PLATELET VOLUME 10.7 fL (7.4-11.4); MONOCYTES # (AUTO) 0.7 10^3/uL (0.0-1.0); MONOCYTES % (AUTO) 12.7 %; NEUTROPHILS # (AUTO) 2.5 10^3/uL (1.5-6.6); NEUTROPHILS % (AUTO) 45.5 %; PLT - PLATELET COUNT 136 10^3/uL (130-450); RED BLOOD COUNT 3.74 10^6/uL (4.70-6.10); RED CELL DISTRIBUTION WIDTH 15.9 % (12.0-15.0); WHITE BLOOD COUNT 5.4 x10^3/uL (4.8-10.8)
[2020-01-31 05:25] LABS: CALCIUM 9.1 mg/dL (8.5-10.3); CREATININE 1.4 mg/dL (0.6-1.2); MAGNESIUM 1.7 mg/dL (1.7-2.8); PHOSPHORUS 3.1 mg/dL (2.5-4.6)
[2020-01-31] MEDS: PREGABALIN 25 MG CAPSULE PO SCH (06:30)
[2020-01-31] MEDS ORDERED: LEVOTHYROXINE 75 MCG TABLET PO SCH (07:00)
[2020-01-31] MEDS ORDERED: LEVOTHYROXINE 100 MCG TABLET PO SCH (07:00)
--- NOTE | 2020-01-31 07:31 | Discharge Plan ---
Discharge Plan Problem Reviewed?: Yes Disposition: Home, Self Care Condition: Stable Prescriptions: Metoprolol Succinate [Toprol Xl] 25 mg PO DAILY #30 tablet Vancomycin [Vancocin] 125 mg PO QID 9 Days #36 capsule Diet: Cardiac Activity Restrictions: Activity as Tolerated Instruction Topics: Vancomycin capsules, Clostridium Difficile Infec Health Concerns: You were seen in the hospital because of low blood pressure and dehydration from diarrhea. You are found to have a stool infection called C. difficile. You are started on antibiotics and IV fluids. Your blood pressure has since remained stable and you are now ready for discharge home. Plan of Treatment: Please take the antibiotics as prescribed 4 times a day for 9 more days. It is also recommended that you continue to monitor your blood pressure at home. Your metoprolol dose was changed to a different form which is extended release and once a day. A prescription was sent to your pharmacy. It is recommended that you stop taking Lasix for the next 3 to 4 days. You may resume it after that although ideally you would see your primary care provider first to ensure that there is no evidence of dehydration. Please check your weight on a daily basis as if you find your weight is increasing, this could be evidence of heart failure and your Lasix might need to be resumed sooner. It is recommended that you contact your vascular surgeon as your procedure on Saturday may need to be delayed. Assessment: Patient expressed understanding of the treatment plan. Additional Instructions or Follow Up instructions: Please follow-up with your primary care provider in 1 week. Return to the emergency department if you develop any fevers, chills, abdominal pain, worsening diarrhea. No Smoking: If you smoke, Please STOP! Call for help. Follow-up with: Aminta Go MD [Primary Care Provider] -
--- NOTE | 2020-01-31 07:36 | DISCHARGE SUMMARY ---
Discharge Summary Admit Date: 01/29/20 Discharge Date: 01/31/20 Discharging Provider: Junior Watson Primary Care Provider: Aminta Go Code Status: Attempt Resuscitation Condition at Discharge: Stable Discharge Disposition: 01 Home, Self Care - DIAGNOSES Admission Diagnoses: Hypotension Atrial fibrillation with rapid ventricular response Acute kidney injury Diarrhea Systolic heart failure History of gout Discharge Diagnoses with Status of Each Condition: Hypotension - resolved. C. difficile diarrhea - improved Acute kidney injury superimposed on CKD - resolved. Chronic systolic heart failure - stable. Hyperchloremic acidosis - improved. Atrial fibrillation - stable. Peripheral vascular disease - stable. Peripheral neuropathy - stable. - HPI History of Present Illness: H&P per JOSE DE JESUS Brody: This is a 74-year-old gentleman with a Past medical history significant for chronic atrial fibrillation with a watchman procedure and no longer anticoagulated, Hypertension, history of CAD, heart failure, peripheral vascular disease, Hypothyroidism who present ER report he had low blood pressure at home. Patient report he had a blood pressure in the home 78/53. At that time he feels very fatigued, Cannot do anything. Patient also reported he had about 1 month of diarrhea. His stool is almost watery. He reported some chest discomfortable but not really chest pain. pt report he had Watchman procedure done about 6 months ago. After the procedure he had some difficulties to control his heart rate. but eventually it were able to get a controlled by metoprolol. Patient reported he had a 3 blood pressure medicine but he take the medicine off if he felt tired or fatigue. If he check his blood pressure is high and his pulse is high he will take more metoprolol. In the ER, initially patient blood pressure was 85/60 with rapid heart 121. Patient was given digoxin in ER. Patient was also given 1.5 L of intravenous IV fluids to rise patient blood pressure. Laboratory test was unremarkable except elevated creatinine 2.2, His baseline creatinine is 1.5. Patient is admitted for further medical management. Discussed the care goal with the patient, patient request full code. - HOSPITAL COURSE Hospital Course: Patient was admitted to the floor for hypotension and atrial fibrillation with rapid ventricular response. He was treated with IV fluids with improvement in his blood pressure. He had been having diarrhea and so C. difficile was checked and this came back positive. He was started on oral vancomycin with resolution of his diarrhea. He did develop a hyperchloremic acidosis due to the normal saline he had received. The IV fluids were discontinued and his bicarbonate improved. He was observed 1 more night as we resumed his home heart failure medications and to ensure his blood pressure could tolerate it. His blood pre ssure remained stable on these medications and he had no more significant diarrhea. His heart rate had also remained controlled on just oral metoprolol. He was discharged home to complete 9 more days of therapy with oral vancomycin. He was asked to contact his vascular surgeon as he is scheduled for procedure in 2 days and this would likely need to be postponed given the C. difficile infection. I also asked the patient to hold his home Lasix for 3 days or until he follows up with his primary care provider. - ALLERGIES Allergies/Adverse Reactions: Allergies Allergy/AdvReac Type Severity Reaction Status Date / Time Sulfa (Sulfonamide Allergy Unknown Verified 06/30/19 10:02 Antibiotics) - MEDICATIONS Home Medications: Ambulatory Orders Medication Instructions Recorded Confirmed Pregabalin 75 mg PO TID 06/30/19 01/30/20 lisinopriL [Lisinopril] 2.5 mg PO DAILY 06/30/19 01/30/20 Aspirin 162 mg PO DAILY 01/29/20 01/30/20 Atorvastatin Calcium 80 mg PO QPM 01/29/20 01/30/20 Clopidogrel [Plavix] 75 mg PO DAILY 01/29/20 01/30/20 HYDROmorphone [Dilaudid] 2 - 4 mg PO QID MDD 14 MG 01/29/20 01/30/20 Magnesium Oxide [Magnesium] 400 mg PO QDBREAKFAST 01/29/20 01/30/20 Colchicine [Colcrys] 0.6 mg PO BID 01/30/20 01/30/20 Furosemide [Lasix] 40 mg PO DAILY 01/30/20 01/30/20 Levothyroxine Sodium [Synthroid] 175 mcg PO QDAC 01/30/20 01/30/20 Pantoprazole [Protonix] 40 mg PO QDAC 01/30/20 01/30/20 Metoprolol Succinate [Toprol Xl] 25 mg PO DAILY #30 tablet 01/31/20 Vancomycin [Vancocin] 125 mg PO QID 9 Days #36 capsule 01/31/20 - PHYSICAL EXAM AT DISCHARGE General Appearance: positive: No acute distress, Alert Eyes Bilateral: positive: Normal inspection, Conjunctivae nml ENT: positive: ENT inspection nml Neck: positive: Nml inspection Respiratory: positive: No respiratory distress. negative: Wheezes, Rales Cardiovascular: positive: No murmur, Irregularly irregular. negative: Tachycardia, Bradycardia, Systolic murmur Abdomen: positive: Non-tender, No distention. negative: Tenderness, Guarding, Rebound Skin: positive: Warm, Dry, Other (He has mild erythema over the anterior aspect of his left felder which he reports is chronic.) Extremities: positive: Full ROM, Pedal edema (Trace pitting edema in the bilate ral lower extremities at the ankle.) Neurologic/Psychiatric: positive: Oriented x3, Motor nml. negative: Disoriented to person, Disoriented to place, Disoriented to time Physical Exam Other/Comments: Vital Signs - 24 hr 01/30/20 01/30/20 01/30/20 15:56 20:57 23:38 Temperature 36.0 C L 36.9 C 36.9 C Heart Rate [ 63 64 66 Brachial] Respiratory 18 18 16 Rate Blood Pressure [Left Brachial artery] Blood Pressure 114/65 117/69 104/63 [Right Brachial artery] O2 Saturation 99 99 99 01/31/20 01/31/20 01/31/20 05:00 08:09 10:35 Temperature 36.6 C 36 C L 36.3 C L Heart Rate [ 65 66 65 Brachial] Respiratory 16 16 20 Rate Blood Pressure 93/57 L [Left Brachial artery] Blood Pressure 116/64 123/73 93/55 L [Right Brachial artery] O2 Saturation 98 100 98 01/31/20 11:26 Temperature Heart Rate [ 65 Brachial] Respiratory Rate Blood Pressure 109/73 [Left Brachial artery] Blood Pressure [Right Brachial artery] O2 Saturation Oxygen O2 Source Room air - LABS Result Diagrams: 01/31/20 04:55 01/31/20 04:55 Other Lab Results: Laboratory Results - last 24 hr 01/31/20 01/31/20 04:55 04:55 WBC 5.4 RBC 3.74 L Hgb 11.0 L Hct 34.4 L MCV 92.0 MCH 29.4 MCHC 32.0 RDW 15.9 H Plt Count 136 MPV 10.7 Neut # (Auto) 2.5 Lymph # (Auto) 1.7 [place] # (Auto) 0.7 Eos # (Auto) 0.5 Baso # (Auto) 0.0 Absolute Nucleated RBC 0.00 Nucleated RBC % 0.0 Sodium 138 Potassium 4.8 Chloride 115 H Carbon Dioxide 17 L Anion Gap 6.0 BUN 32 H Creatinine 1.4 H Estimated GFR (MDRD) 49 L Glucose 96 Calcium 9.1 Phosphorus 3.1 Magnesium 1.7 - DIAGNOSTIC IMAGING Diagnostic Imaging Results: Final report reviewed - FOLLOW UP Follow Up: He was asked to follow-up with his primary care provider in 1 week and to contact his vascular surgeon given his scheduled for intervention for his peripheral vascular disease in 2 days and he now has C. difficile infection. - TIME SPENT Time Spent in Discharge (Minutes): 32
[2020-01-31] MEDS: METOPROLOL SUCCINATE 25 MG TABLET PO SCH (08:21)
[2020-01-31] MEDS: ASPIRIN CHEW 81 MG TABLET PO SCH (08:21)
[2020-01-31] MEDS: VANCOMYCIN 125 MG CAPSULE PO SCH (08:21)
[2020-01-31] MEDS: CLOPIDOGREL 75 MG TABLET PO SCH (08:22)
[2020-01-31] MEDS: HEPARIN 5,000 UNIT/ML VIAL SUBQ SCH ×2 (08:23→10:05)
[2020-01-31] MEDS: SODIUM CHLORIDE FLUSH 0.9% 10 ML SYRINGE IVP SCH (08:23)
[2020-01-31] MEDS ORDERED: lisinopriL 5 MG TABLET PO SCH (09:00)
[2020-01-31 11:27] VITALS: BP 109/73
== END 2020-01-31 11:52 | disposition home or self-care (01) | DRG 372 ==
LOC: ED 14:41 → MS2 16:35 → OBSVTOIN 01-30 10:56
PROVIDERS: ADMIT Internal Medicine; ATTEND Internal Medicine
DX: A04.72 Enterocolitis due to Clostridium difficile, not specified as recurrent (principal); N17.9 Acute kidney failure, unspecified; I13.0 Hypertensive heart and chronic kidney disease with heart failure and stage 1 through stage 4 chronic kidney disease, or unspecified chronic kidney disease; R19.7 Diarrhea, unspecified; I11.0 Hypertensive heart disease with heart failure; I50.20 Unspecified systolic (congestive) heart failure; I50.22 Chronic systolic (congestive) heart failure; E87.2 Acidosis; I48.21 Permanent atrial fibrillation; I95.9 Hypotension, unspecified; E86.0 Dehydration; I25.10 Atherosclerotic heart disease of native coronary artery without angina pectoris; N18.9 Chronic kidney disease, unspecified; I73.9 Peripheral vascular disease, unspecified; E03.9 Hypothyroidism, unspecified; M10.9 Gout, unspecified; T50.3X5A Adverse effect of electrolytic, caloric and water-balance agents, initial encounter; Y92.230 Patient room in hospital as the place of occurrence of the external cause; G62.9 Polyneuropathy, unspecified; Z95.828 Presence of other vascular implants and grafts; Z79.891 Long term (current) use of opiate analgesic; Z79.82 Long term (current) use of aspirin; Z79.02 Long term (current) use of antithrombotics/antiplatelets; Z79.899 Other long term (current) drug therapy; Z95.1 Presence of aortocoronary bypass graft
CPT/HCPCS: 36415; 80048; 80053; 81599; 83690; 83735; 84100; 84443; 84484; 85025; 87493; 93005; 96365; 96372; 96375; 99284; 99285; A9270; G0378; J7120; J8499; 87045; 87046

== ENCOUNTER 2020-05-18 11:25 | Outpatient (CLI) | payer MEDICARE, BC | END 2020-05-18 11:26 | disposition critical access hospital (66) | LOC: EMS 11:25 | PROVIDERS: ATTEND Surgery | DX: M79.601 Pain in right arm (principal) | CPT/HCPCS: A0425; A0427 ==

== ENCOUNTER 2020-05-18 11:54 | Inpatient (IN) | payer MEDICARE, BC ==
[2020-05-18] MEDS ORDERED: HYDROmorphone 1 MG/ML CARPUJECT IVP STA ×3 (12:11→16:25)
--- NOTE | 2020-05-18 12:14 | ED Physician Documentation ---
PD HPI UPPER EXT INJURY - Stated complaint Stated Complaint: R ARM/SHOULDER PX - Chief complaint Chief Complaint: Ext Problem - History obtained from History obtained from: Patient, EMS - Additonal information Additional information: 74-year-old gentleman with history of atrial fibrillation, coronary disease with three-vessel bypass last year, multiple hip and joint issues presents with wrist pain that he noted first yesterday morning. He did not do anything to it to cause increased pain per se, just started hurting at the wrist and then subsequently over the day yesterday and overnight last night the pain became intolerable and started radiating up the arm towards the shoulder. There was no injury. He thinks he had a fever at home this morning. Review of Systems Ten Systems: 10 systems reviewed and negative Constitutional: reports: Fever, Fatigue. denies: Chills Ears: denies: Reviewed and negative Nose: denies: Rhinorrhea / runny nose Cardiac: denies: Chest pain / pressure, Palpitations Respiratory: denies: Dyspnea, Cough PD PAST MEDICAL HISTORY - Past Medical History Cardiovascular: Hypertension, Coronary artery disease, Peripheral Vascular Disease, Atrial fibrillation Respiratory: None Neuro: None Endocrine/Autoimmune: HyPOthyroidism Musculoskeletal: Gout - Past Surgical History Ortho: Shoulder arthroplasty, Spine surgery Cardiovascular: CABG - Present Medications Home Medications: Ambulatory Orders Medication Instructions Recorded Confirmed Pregabalin 75 mg PO TID 06/30/19 05/18/20 lisinopriL [Lisinopril] 2.5 mg PO DAILY 06/30/19 05/18/20 Aspirin 162 mg PO DAILY 01/29/20 05/18/20 Atorvastatin Calcium 80 mg PO QPM 01/29/20 05/18/20 HYDROmorphone [Dilaudid] 2 - 4 mg PO QID PRN MDD 14 MG 01/29/20 05/18/20 Furosemide [Lasix] 40 mg PO DAILY 01/30/20 05/18/20 Levothyroxine Sodium [Synthroid] 150 mcg PO QDAC 01/30/20 05/18/20 Metoprolol Succinate [Toprol Xl] 25 mg PO DAILY #30 tablet 01/31/20 05/18/20 - Allergies Allergies/Adverse Reactions: Allergies Allergy/AdvReac Type Severity Reaction Status Date / Time Sulfa (Sulfonamide Allergy Unknown Verified 05/18/20 12:01 Antibiotics) spirolactone AdvReac Hives Uncoded 05/18/20 12:32 - Social History Does the pt smoke?: No Smoking Status: Never smoker Does the pt drink ETOH?: No Does the pt have substance abuse?: No - Immunizations Immunizations are current?: Yes - POLST Patient has POLST: No PD ED PE NORMAL - Vitals Vital signs reviewed: Yes - General General: Alert and oriented X 3, No acute distress - HEENT HEENT: PERRL, EOMI - Neck Neck: Supple, no meningeal sign, No bony TTP - Cardiac Cardiac: Other - Respiratory Respiratory: No respiratory distress, Clear bilaterally - Abdomen Abdomen: Soft, Non tender - Back Back: No CVA TTP, No spinal TTP - Derm Derm: Normal color, Warm and dry - Extremities Extremities: Other (The dorsal R wrist, yusef on the radial side v tender. Cannot range d/t pain. Mild warmth, no redness. Remainder of RUE NTTP. Good pulses.) - Neuro Neuro: Alert and oriented X 3, Normal speech Results - Vitals Vitals: Vital Signs - 24 hr 05/18/20 05/18/20 05/18/20 12:01 12:33 12:38 Temperature 37.6 C Heart Rate 67 129 H 128 H Respiratory 20 14 16 Rate Blood Pressure 159/97 H 159/97 H 145/93 H O2 Saturation 100 97 96 05/18/20 05/18/20 05/18/20 13:48 13:55 15:51 Temperature 37.7 C Heart Rate 126 H 127 H 128 H Respiratory 15 12 10 L Rate Blood Pressure 149/95 H 139/88 H 149/100 H O2 Saturation 100 95 96 05/18/20 05/18/20 05/18/20 16:16 16:23 16:57 Temperature 37.6 C Heart Rate 130 H 130 H 88 Respiratory 14 16 15 Rate Blood Pressure 155/99 H 138/98 H 125/94 H O2 Saturation 100 97 100 05/18/20 16:58 Temperature 37.6 C Heart Rate 64 Respiratory 17 Rate Blood Pressure 112/90 H O2 Saturation 95 Oxygen O2 Source Room air - EKG (time done) 1207 Rate: Rate (enter#) (129) Rhythm: Sinus tachycardia [place]: Normal Intervals: Prolonged QT, Other (IVCD) QRS: LVH Ischemia: Non specific changes Computer interpretation: Agree with computer - Labs Labs: Microbiology 05/18/20 13:25 Body Fluid Culture - Preliminary Synovial Fluid Laboratory Tests 05/18/20 05/18/20 05/18/20 12:35 12:35 12:35 WBC 11.8 H RBC 4.67 L Hgb 14.1 Hct 44.1 MCV 94.4 H MCH 30.2 MCHC 32.0 RDW 13.0 Plt Count 169 MPV 10.6 Neut # (Auto) 9.1 H Lymph # (Auto) 1.1 L [place] # (Auto) 1.5 H Eos # (Auto) 0.1 Baso # (Auto) 0.1 Absolute Nucleated RBC 0.00 Nucleated RBC % 0.0 ESR PT 16.0 H INR 1.5 H Sodium 137 Potassium 4.1 Chloride 98 L Carbon Dioxide 25 Anion Gap 14.0 H BUN 36 H Creatinine 1.5 H Estimated GFR (MDRD) 46 L Glucose 150 H Lactic Acid Calcium 9.8 Magnesium 2.0 Total Bilirubin 1.5 H AST 17 ALT 16 Alkaline Phosphatase 127 H C-Reactive Protein 9.4 H Total Protein 8.4 H Albumin 4.2 Globulin 4.2 Albumin/Globulin Ratio 1.0 Fluid Source Fluid Color Fluid Clarity Fluid WBC Fluid RBC Fluid Neutrophils % Fluid Lymphocytes % Fluid Monocytes % Fld Mesothelial Cell % Fluid Crystals 05/18/20 05/18/20 05/18/20 12:35 12:35 13:25 WBC RBC Hgb Hct MCV MCH MCHC RDW Plt Count MPV Neut # (Auto) Lymph # (Auto) [place] # (Auto) Eos # (Auto) Baso # (Auto) Absolute Nucleated RBC Nucleated RBC % ESR 1 PT INR Sodium Potassium Chloride Carbon Dioxide Anion Gap BUN Creatinine Estimated GFR (MDRD) Glucose Lactic Acid 1.5 Calcium Magnesium Total Bilirubin AST ALT Alkaline Phosphatase C-Reactive Protein Total Protein Albumin Globulin Albumin/Globulin Ratio Fluid Source SYNOVIAL Fluid Color YELLOW Fluid Clarity CLOUDY Fluid WBC 66040 Fluid RBC 9000 Fluid Neutrophils % 81.0 Fluid Lymphocytes % 4.0 Fluid Monocytes % 15.0 Fld Mesothelial Cell % Not Reportable Fluid Crystals 05/18/20 13:25 WBC RBC Hgb Hct MCV MCH MCHC RDW Plt Count MPV Neut # (Auto) Lymph # (Auto) [place] # (Auto) Eos # (Auto) Baso # (Auto) Absolute Nucleated RBC Nucleated RBC % ESR PT INR Sodium Potassium Chloride Carbon Dioxide Anion Gap BUN Creatinine Estimated GFR (MDRD) Glucose Lactic Acid Calcium Magnesium Total Bilirubin AST ALT Alkaline Phosphatase C-Reactive Protein Total Protein Albumin Globulin Albumin/Globulin Ratio Fluid Source Fluid Color Fluid Clarity Fluid WBC Fluid RBC Fluid Neutrophils % Fluid Lymphocytes % Fluid Monocytes % Fld Mesothelial Cell % Fluid Crystals NONE SEEN - Rads (name of study) R wrist 3v Radiology: EMP read contemporaneously (chondrocalcin[place] c/w CPPD, [place] [facility] [facility] [place] Procedures - Arthrocentesis Joint: Wrist, Right Preparation: Consent obtained, Sterile prep and drape Anesthesia: Lidocaine 1% Fluid: Sent for cell count, Cloudy, Sent for crystals, Sent for culture, Fluid obtained - cc (3ml) Aftercare: No complications, Patient tolerated well PD MEDICAL DECISION MAKING - ED course ED course: This is a 74-year-old gentleman who presents by ambulance for her right wrist pain starting yesterday morning and now radiating up towards the shoulder associated with a fever at home and his temperature is 37.6 here. He appears to have a lot of pain and tenderness at the wrist with some warmth but no redness. Differential diagnosis would include the septic joint. Doesn't seem to be a primary cardiac issue. Although he is noted to be tachycardic with a regular neural complex rate at 130. EKG is suggestive of sinus rhythm but there is really no variability so my suspicion is that this may actually be atrial flutter. We will trial some metoprolol. Second dose of metoprolol, still heart rate maintained exactly the same. A arthrocentesis was done, no crystals. Initial cell count showed 35 white cells. Given the x-ray findings a presumed CPPD, but at least we had ruled out an infection. While preparing to discharge him, I noted that the results had been amended to 35,000 white cells, at which point discharge was canceled and I paged the on-call orthopedic surgeon for consultation. We initially tried to get a hold of Dr. Contreras around 2:50 PM. Later learned that there was a delay getting a hold of him as he was scrubbed in the OR. Dr. Contreras did see the patient, reported that he felt that it was a typical polyarthropathy and not consistent with infection recommended steroids. His heart rate was difficult to control. After a total of 10 mg of IV metoprolol and 10 mg of IV diltiazem he briefly came down a little bit but then continued to be in what looks like a flutter with 2-1 block with a rate of 130. As such I spoke with Dr. Johnson for admission at 4:32 PM. Her right around 5 PM he converted to a 4-[address] Johnson to update Departure - Departure Disposition: 66 [facility] DC/Xfer Clinical Impression: Tachycardia, Wrist pain, right Atrial flutter Qualifiers: Atrial flutter type: typical Qualified Code(s): I48.3 - Typical atrial flutter Condition: Serious
[2020-05-18] MEDS ORDERED: METOPROLOL 5 MG/5 ML VIAL IVP STA ×2 (12:31→13:30)
[2020-05-18 12:50] LABS: BASOPHILS # (AUTO) 0.1 10^3/uL (0.0-0.1); BASOPHILS % (AUTO) 0.5 %; EOSINOPHILS # (AUTO) 0.1 10^3/uL (0.0-0.7); EOSINOPHILS % (AUTO) 0.8 %; HGB - HEMOGLOBIN 14.1 g/dL (14.0-18.0); LYMPHOCYTES # (AUTO) 1.1 10^3/uL (1.5-3.5); LYMPHOCYTES % (AUTO) 9.1 %; MEAN CORPUSCULAR HEMOGLOBIN 30.2 pg (27.0-31.0); MEAN CORPUSCULAR VOLUME 94.4 fL (80.0-94.0); MEAN PLATELET VOLUME 10.6 fL (7.4-11.4); MONOCYTES # (AUTO) 1.5 10^3/uL (0.0-1.0); MONOCYTES % (AUTO) 12.4 %; NEUTROPHILS # (AUTO) 9.1 10^3/uL (1.5-6.6); NEUTROPHILS % (AUTO) 76.9 %; PLT - PLATELET COUNT 169 10^3/uL (130-450); RED BLOOD COUNT 4.67 10^6/uL (4.70-6.10); WHITE BLOOD COUNT 11.8 x10^3/uL (4.8-10.8)
[2020-05-18] MEDS ORDERED: BUFFERED LIDOCAINE 10 ML SYRINGE SUBQ STA ×2 (12:53→12:54)
--- NOTE | 2020-05-18 12:59 | XRAY Report ---
PROCEDURE: Wrist 3 View RT INDICATIONS: wrist pain TECHNIQUE: 3 views of the wrist were acquired. COMPARISON: None FINDINGS: Bones: No fractures or dislocations. No suspicious bony lesions. Degenerative arthritis throughout the wrist. Extensive chondrocalcinosis is a significant part of the findings, suggesting that this al l may be related to CPPD arthropathy. There is advanced degenerative change at the base of the thumb. Soft tissues: No suspicious soft tissue calcifications. IMPRESSION: 1. No evidence acute bony abnormality of the right wrist. 2. Extensive chondrocalcinosis suggests CPPD arthropathy. 3. Advanced degenerative arthritis at the first carpometacarpal joint. Reviewed by: Adilson Parnell MD on 05/18/2020 12:58 PM PST Approved by: Adilson Parnell MD on 05/18/2020 12:58 PM PST Station ID: [id number]
[2020-05-18 13:05] LABS: ALBUMIN 4.2 g/dL (3.2-5.5); BILIRUBIN,TOTAL 1.5 mg/dL (0.2-1.0); CALCIUM 9.8 mg/dL (8.5-10.3); CREATININE 1.5 mg/dL (0.6-1.2); CRP - C-REACTIVE PROTEIN 9.4 mg/dL (0-1.0); TOTAL PROTEIN 8.4 g/dL (6.7-8.2)
[2020-05-18 13:06] LABS: INR 1.5 (0.8-1.2)
[2020-05-18 13:57] LABS: BF CLARITY CLOUDY; BF SOURCE SYNOVIAL
[2020-05-18 13:58] LABS: BF COLOR YELLOW
[2020-05-18 14:25] LABS: CC,BF RBC 9000 /mm^3
[2020-05-18] MEDS ORDERED: COLCHICINE 0.6 MG TABLET PO STA (14:44)
[2020-05-18] MEDS ORDERED: predniSONE 20 MG TABLET PO STA ×2 (14:44→16:28)
[2020-05-18] MEDS ORDERED: diltiaZEM INJ 5 MG/ML VIAL IVP STA ×3 (15:54→16:29)
--- NOTE | 2020-05-18 16:35 | CONSULTATION NOTE ---
Referring Provider Name of Referring Provider:: Calin Consult Date: 05/18/20 Chief Complaint - Chief Complaint Chief Complaint: Rt Shoulder, elbow, arm pain History of Present Illness - Admitted From Admitted From:: ER - History of Present Illness HPI Comment/Other: Patient is a 74-year-old male with A. fib, history of suspected pseudogout, and polyarticular swellings and inflammation presenting for polyarticular pain in his right shoulder elbow wrist and hand.Patient's had pain since yesterday reported a subjective fever earlier.Patient denies any trauma or breaks to the skin.Patient has pain and inflammation In his right arm joints painful to move. Patient says this is happened in the past Although usually eats his knees. Patient's had rotator cuff surgery right shoulder, multiple surgeries to his back sees a provider for chronic pain. History - Past Medical History Cardiovascular: reports: Hypertension, Coronary artery disease, Peripheral Vascular Disease, Atrial fibrillation Respiratory: reports: None Neuro: reports: None Endocrine/Autoimmune: reports: HyPOthyroidism Musculoskeletal: reports: Gout, Chronic back pain MRSA Hx?: No - Past Surgical History Ortho: reports: Shoulder arthroplasty, Spine surgery Cardiovascular: reports: CABG - Family & Social History Family History: Mother: , Father: Family History Comment/Other: Patient reported his father from heart failure at age 73. His mother from heart attack at age 89. Social History Notes: Patient denies alcohol, smoking, drug issue.He had two sons in the [place] and [facility]. he is alone at [facility], His from cancer year and a half ago. - POLST Patient has POLST: No Meds/Allgy - Home Medications Home Medications: Ambulatory Orders Medication Instructions Recorded Confirmed Pregabalin 75 mg PO TID 06/30/19 05/18/20 lisinopriL [Lisinopril] 2.5 mg PO DAILY 06/30/19 05/18/20 Aspirin 162 mg PO DAILY 01/29/20 05/18/20 Atorvastatin Calcium 80 mg PO QPM 01/29/20 05/18/20 HYDROmorphone [Dilaudid] 2 - 4 mg PO QID PRN MDD 14 MG 01/29/20 05/18/20 Furosemide [Lasix] 40 mg PO DAILY 01/30/20 05/18/20 Levothyroxine Sodium [Synthroid] 150 mcg PO QDAC 01/30/20 05/18/20 Metoprolol Succinate [Toprol Xl] 25 mg PO DAILY #30 tablet 01/31/20 05/18/20 - Allergies Allergies/Adverse Reactions: Allergies Allergy/AdvReac Type Severity Reaction Status Date / Time Sulfa (Sulfonamide Allergy Unknown Verified 05/18/20 12:01 Antibiotics) spirolactone AdvReac Hives Uncoded 05/18/20 12:32 Review of Systems - Constitutional Constitutional: reports: Fever - Musculoskeletal Musculoskeletal: reports: Limited range of motion, Joint pain, Joint swelling Exam - Vital Signs Vital Signs: Vital Signs x48h Temp Pulse Resp BP Pulse Ox 05/18/20 16:23 37.6 C 130 H 16 138/98 H 97 05/18/20 16:16 130 H 14 155/99 H 100 05/18/20 15:51 128 H 10 L 149/100 H 96 05/18/20 13:55 127 H 12 139/88 H 95 05/18/20 13:48 37.7 C 126 H 15 149/95 H 100 05/18/20 12:38 128 H 16 145/93 H 96 05/18/20 12:33 129 H 14 159/97 H 97 05/18/20 12:01 37.6 C 67 20 159/97 H 100 - Physical Exam General Appearance: positive: Mild distress Cardiovascular: positive: Irregularly irregular Skin: positive: Color nml, No rash. negative: Warm Extremities: positive: Joint swelling (Right arm color normal temperature normal no streaking no erythema. Swelling not appreciated in shoulder elbow and wrist some swelling fingers.) Conclusion and Plan - Lab Results Laboratory Results 05/18/20 13:25: Fluid Crystals NONE SEEN 05/18/20 13:25: Fluid Source SYNOVIAL, Fluid Color YELLOW, Fluid Clarity CLOUDY, Fluid WBC 84355, Fluid RBC 9000, Fluid Neutrophils % 81.0, Fluid Lymphocytes % 4.0, Fluid Monocytes % 15.0, Fld Mesothelial Cell % Not Reportable 05/18/20 12:35: ESR 1 05/18/20 12:35: Lactic Acid 1.5 05/18/20 12:35: Sodium 137, Potassium 4.1, Chloride 98 L, Carbon Dioxide 25, Anion Gap 14.0 H, BUN 36 H, Creatinine 1.5 H, Estimated GFR (MDRD) 46 L, Glucose 150 H, Calcium 9.8, Magnesium 2.0, Total Bilirubin 1.5 H, AST 17, ALT 16, Alkaline Phosphatase 127 H, C-Reactive Protein 9.4 H, Total Protein 8.4 H, Albumin 4.2, Globulin 4.2, Albumin/Globulin Ratio 1.0 05/18/20 12:35: PT 16.0 H, INR 1.5 H 05/18/20 12:35: WBC 11.8 H, RBC 4.67 L, Hgb 14.1, Hct 44.1, MCV 94.4 H, MCH 30.2, MCHC 32.0, RDW 13.0, Plt Count 169, MPV 10.6, Neut # (Auto) 9.1 H, Lymph # (Auto) 1.1 L, [place] # (Auto) 1.5 H, Eos # (Auto) 0.1, Baso # (Auto) 0.1, Absolute Nucleated RBC 0.00, Nucleated RBC % 0.0 - Diagnostic Imaging Results Diagnostic Imaging Results: positive: Read independently (Calcification seen TFCC, joint space narrowing and arthritis in the CMC joint first digit.No fractures dislocations) - Diagnosis Diagnosis: Inflammatory arthritis Polyarticular Involving hand wrist elbow shoulder right side - Plan Plan: Suggest anti-inflammatory medications,Follow-up with primary care and call worker. Contact orthopedic service if fevers and chills Present or symptoms worsen
[2020-05-18 17:23] LABS: C. PNEUMONIAE- RESP PCR PANEL NOT DETECTED
--- NOTE | 2020-05-18 18:18 | XRAY Report ---
PROCEDURE: Chest 1 View X-Ray INDICATIONS: Aflutter with RVR, CAD with CABG TECHNIQUE: One view of the chest was acquired. COMPARISON: Chest radiographs 06/30/2019 FINDINGS: Surgical changes and devices: Sternotomy wires and mediastinal clips are new when compared to the walker or radiographs. A left atrial appendage clip is also seen.. Lungs and pleura: No pleural effusions or pneumothorax. Lungs are clear. Mediastinum: Mediastinal contours appear normal. Heart size is normal. Bones and chest wall: No suspicious bony lesions. Overlying soft tissues appear unremarkable. Dege nerative changes are seen in the shoulders bilaterally. IMPRESSION: Interval postsurgical changes are seen from sternotomy and CABG. No acute cardiopulmonary abnormality is seen. Reviewed by: Juliocesar Wong MD on 05/18/2020 6:16 PM PST Approved by: Juliocesar Wong MD on 05/18/2020 6:16 PM [facility] Station ID: [id number]
[2020-05-18] MEDS: HYDROmorphone 2 MG TABLET PO PRN ×2 (18:24→19:50)
--- NOTE | 2020-05-18 19:42 | HISTORY & PHYSICAL EXAMINATION ---
DATE OF SERVICE: 05/18/2020 Physician: Rosita Johnson MD HISTORY OF PRESENT ILLNESS: This is a 74-year-old white male with a history of chronic atrial fib/flutter, gout versus pseudogout with polyarticular swelling and recurrent inflammation. He has a history of hypertension, CAD, PVD, CKD, and hypothyroidism. Ten months ago, the patient was admitted for new onset of atrial flutter and new CHF and was found to have an EF of 38% on Echo; he underwent stress testing that was abnormal and he subsequently underwent outpatient angiography leading to open heart surgery for bypasses and he describes that he had a Watchman device inserted into the left atrial appendage during the CABG, so that he no longer needed to be on Coumadin. After that, he developed an episode of C. diff for which he was hospitalized here several months ago when he presented tachycardic and in atrial flutter with RVR. The patient presented to the emergency room today complaining of rapidly progressive right wrist pain with swelling and was found to have a low-grade fever and the wrist was consistent with inflammation. Therefore, it was tapped in the ER. The fluid from the wrist had 35,000 white blood cells. Orthopedic consult was requested and he was seen by the Orthopedic PA with discussion with Dr. Carr of Orthopedics. It was felt that he was having polyarthritis and anti-inflammatory medicines were advised. In the ER, the patient was in atrial flutter throughout the visit with heart rates in the 130s. He received IV diltiazem x2 and IV metoprolol x2. The heart rate remained in the 128-130 range and the emergency room doctor reached out to the hospitalist service to admit him for atrial flutter with RVR and to manage his severe pain in the right wrist. PAST MEDICAL HISTORY: Hypertension, CAD with CABG done 08/2019, chronic atrial fib/flutter with a Watchman device in the left atrial appendage, therefore not on anticoagulation, hypothyroidism, gout vs pseudogout, remote spine surgery, and history of recurrences of multiple joints that get swollen with arthritis, especially his knees. FAMILY HISTORY: There is a family history of heart failure in his father and OH in his mother, but both were elderly. SOCIAL HISTORY: The patient has rare alcohol intake, does not smoke cigarettes and has no drug use history. He was retired in 2019. He lost his to cancer a year and a half ago and lives alone. REVIEW OF SYSTEMS: The patient denies any cardiopulmonary complaints and cannot feel palpitations or racing sensation. He has been compliant with his medications. He did have a fever, he thought at home for 1 day. The patient is followed by Dr. Horn of Cardiology and has an appointment tomorrow, he states. A comprehensive review of systems was performed and the pertinent positives are listed, the rest are negative. ALLERGIES: SULFA AND SPIRONOLACTONE (THIS GAVE HIM HIVES). MEDICATIONS 1. Lasix 40 mg daily. 2. Lipitor 80 mg every night. 3. Aspirin 81 mg 2 tabs daily. 4. Levothyroxine 150 mcg daily. 5. Dilaudid oral p.r.n. pain. 6. Toprol-XL 100 mg in the morning, then 25 mg at noon and in the evening. 7. Lisinopril 2.5 mg daily. 8. Pregabalin 75 mg t.i.d. PHYSICAL EXAM GENERAL: Elderly white male. He is somnolent after getting Dilaudid for pain, and is overall not in distress. VITAL SIGNS: Blood pressure 152/67, heart rate 60-130 in atrial flutter with variable block, afebrile. Room air saturation 97-100%. HEENT: Poor dentition. Oral mucosa is moist. NECK: Without JVD. LUNGS: Clear. HEART: Tachycardic, irregularly irregular with a 2/6 systolic murmur heard at the base. ABDOMEN: Soft, nontender. Normal bowel sounds. EXTREMITIES: No leg edema. The right wrist is swollen and warm, but not red and has decreased range of motion, is tender to touch. NEUROLOGIC: Grossly intact, but he is currently lethargic. LABORATORY DATA: Sodium 137, potassium 4.1, BUN 36, creatinine 1.5 and that is his baseline. Lactic acid 1.5, bilirubin 1.5. Normal liver tests, except alk phos 127. CRP 9.4. Troponin high sensitivity is 9.1. BNP 221. TSH low at 0.24. White blood count elevated at 11.8, hemoglobin 14.1, platelet count 169. INR 1.5. The fluid from the wrist tap showed cloudy fluid with white blood count greater than 35,000 and 81% neutrophils. His [employer] swab was negative for COVID. IMAGING: Chest x-ray: No active cardiopulmonary disease, normal cardiac size. 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 EKG: Atrial flutter with 2:1 block, ventricular rate 130, poor R-wave progression, and it is similar to previous EKGs. IMPRESSION/DIAGNOSES 1. Atrial flutter with rapid ventricular response and etiology for rapid ventricular response in a patient who has been compliant with his medications is very likely to be the fever or pain. 2. Arthritis of the right wrist in a patient with known pseudogout and polyarthritis with recurrent exacerbations. 3. History of coronary artery bypass graft. 4. Chronic kidney disease. 5. Hypothyroidism, on replacement; but with low TSH, indicating probably excessive thyroid replacement dose. PLAN: Admit the patient to the Hospitalist service on telemetry. Increase his beta uziel dose orally to achieve better rate control. Obtain an Echo to re- establish LV and RV contractility since he had a history of ischemic cardiomyopathy with EF 38% before the bypasses. Cycle troponins to R/O an OH as cause of the new RVR. We will reach out to his established Global Marketing Manager regarding his visit, which is scheduled for tomorrow. Continue with medications for pain management including his pregabalin and we will begin high dose nonsteroidal anti-inflammatory meds, as recommended by the orthopedic service. Additional narcotic medications p.r.n. for severe pain will be ordered for pain control. While he is on high dose NSAIDs for 1-2 days, will not give his daily 2 baby aspirin. Will begin meds for stress ulcer prophylaxis. He can be on his statin medicine. Unsure why he is on a daily Lasix dose unless he still has a persistent depressed LVEF. Hold Lasix for now. Hold Lisinopril for now, since his BP will drop with the lower Metoprolol dose. Will obtain a free T4 to determine correct thyroid replacement dose. CODE STATUS: FULL CODE. DVT PROPHYLAXIS: SCDs. ATTESTATION: The patient is expected to be discharged or transferred to another facility within 96 hours: Yes. cc: Aminta Go MD TD: 05/18/2020 19:16 [facility]
[2020-05-18] MEDS: KETOROLAC 30 MG/ML VIAL IVP SCH (20:02)
[2020-05-18] MEDS: METOPROLOL SUCCINATE 50 MG TABLET PO SCH (20:03)
[2020-05-18] MEDS: PREGABALIN 25 MG CAPSULE PO SCH (21:31)
[2020-05-18] MEDS: ATORVASTATIN 40 MG TABLET PO SCH (21:31)
[2020-05-18] MEDS: FAMOTIDINE 20 MG TABLET PO SCH (21:32)
[2020-05-19] MEDS: KETOROLAC 30 MG/ML VIAL IVP SCH ×4 (02:16→21:28)
[2020-05-19] MEDS: SODIUM CHLORIDE FLUSH 0.9% 10 ML SYRINGE IVP SCH ×3 (02:16→16:13)
[2020-05-19] MEDS: PREGABALIN 25 MG CAPSULE PO SCH ×3 (06:53→21:29)
[2020-05-19] MEDS: LEVOTHYROXINE 100 MCG TABLET PO SCH (06:53)
[2020-05-19] MEDS: HYDROmorphone 2 MG TABLET PO PRN ×2 (06:59→12:28)
[2020-05-19] MEDS: METOPROLOL SUCCINATE 50 MG TABLET PO SCH ×2 (08:21→12:30)
[2020-05-19] MEDS: FAMOTIDINE 20 MG TABLET PO SCH (08:22)
[2020-05-19 08:56] LABS: CALCIUM 9.3 mg/dL (8.5-10.3); CREATININE 1.9 mg/dL (0.6-1.2)
[2020-05-19] MEDS ORDERED: METOPROLOL SUCCINATE 25 MG TABLET PO SCH (09:00)
[2020-05-19] MEDS ORDERED: ASPIRIN CHEW 81 MG TABLET PO SCH (09:00)
[2020-05-19] MEDS: polyethylene glycoL 3350 17 GM PACKET PO SCH (10:53)
[2020-05-19] MEDS: SODIUM CHLORIDE FLUSH 0.9% 10 ML SYRINGE IVP PRN ×2 (10:55→14:49)
--- NOTE | 2020-05-19 11:23 | PHARMACY PROGRESS NOTE ---
- Best Possible Medication History Admit Date and Time: 05/18/20 1648 Processed by: Pharmacy Medication History completed: Yes Patient Interview: Completed Secondary Source(s): Insurance records As the person ultimately responsible for medication therapy, providers are able to order a medication from an existing home medication list in [facility] via the "Reconcile Routine" prior to Confirmation of that medication by ict customer support officer. Such practice is discouraged except when the physician, in their clinical judgment, deems that a medical need exists for a medication without regard to previous use.
[2020-05-19] MEDS: ACETAMINOPHEN 325 MG TABLET PO PRN (12:27)
[2020-05-19] MEDS: MULTIVITAMIN W/MINERALS TABLET PO SCH (16:12)
--- NOTE | 2020-05-19 19:31 | PROVIDER PROGRESS NOTE ---
Assessment/Plan - Problem List (1) Atrial flutter Qualifiers: Atrial flutter type: typical Qualified Code(s): I48.3 - Typical atrial flutter Assessment/Plan: Patient is no longer in rapid ventricular rhythm. Heart rate was in the 60s. Patient underwent a watchman procedure last year at the same time he had CABG. Patient normally takes metoprolol succinate 100 mg p.o. q AM, 50 mg q. noon and 50 mg q HS. Patient's Nighttime dose was held today due to a systolic blood pressure in the 80s. Patient has had decreased urine output throughout the day. Consequently a 500 mill bolus of normal saline was administered. (2) Pseudogout of right wrist Assessment/Plan: Patient received colchicine and prednisone 60 mg once yesterday Patient has been on Toradol 15 mg IV every 6 hours today. We will hold Toradol due to an increase in patient's creatinine from 1.5-1.9. On Tylenol 650 mg every 4 hours as needed. Will administer more IV fluid as indicated. (3) History of coronary artery disease Assessment/Plan: Patient underwent CABG last year. 2D echocardiogram done today showed an EF of 45 to 50%. This is an improvement from last year when his EF was 30 and 35%. Patient was scheduled to see Dr. Horn today for a 1 year follow-up but did not make it because he is in the hospital currently On metoprolol 100 mg every morning, 50 mg q. noon and 50 mg every q HS On atorvastatin 80 mg p.o. every afternoon (4) Hypotension Assessment/Plan: Suspect multifactorial due to volume depletion and all medication use. Patient Has had decreased urine output today. Systolic blood pressure tonight was in the 80s. A 500 cc bolus of normal saline was being administered. Patient's night dose of metoprolol is being held. (5) PVD (peripheral vascular disease) Assessment/Plan: He had a right femoral stent placed at [facility] by Dr. Bryant in November 2019. He had a left femoral angioplasty done December 2019 at [facility] as well. More intervention is planned in the future. (6) OMAIRA (acute kidney injury) Assessment/Plan: Patient's creatinine today is 1.9 with an estimated GFR 35. This is an increase from yesterday when the creatinine was 1.5. Patient reports taking Ibuprofen regularly at home. He takes about 1200 mg of ibuprofen daily. Toradol has been discontinued for now. Acute kidney injury could also be due to volume depletion. The patient has had decreased urine output throughout the day and a systolic blood pressure in the 80s tonight. Patient is receiving a 500 mill bolus of normal saline. Will reevaluate (7) Hypothyroidism Assessment/Plan: On Synthroid 150 mcg p.o. daily - Current Meds Current Meds: Current Medications Generic Name Dose Route Start Last Admin Trade Name Freq PRN Reason Stop Dose Admin Acetaminophen 650 mg 05/18/20 17:30 05/19/20 12:27 Acetaminophen 325 Mg Tablet PO 650 mg Q4HR PRN Administration Pain 1 to 4 Atorvastatin Calcium 80 mg 05/18/20 21:00 05/18/20 21:31 Atorvastatin 40 Mg Tablet PO 80 mg QPM JOHN Administration Hydromorphone HCl 2 - 4 mg 05/18/20 17:37 05/19/20 12:28 Hydromorphone 2 Mg Tablet PO 4 mg QID PRN Administration PAIN Ketorolac Tromethamine 15 mg 05/18/20 20:00 05/19/20 14:47 Ketorolac 30 Mg/Ml Vial IVP 05/23/20 19:59 15 mg Q6H JOHN Administration Levothyroxine Sodium 150 mcg 05/19/20 07:00 05/19/20 06:53 Levothyroxine 100 Mcg Tablet PO 150 mcg QDAC JOHN Administration Metoprolol Succinate 100 mg 05/19/20 09:00 05/19/20 08:21 Metoprolol Succinate 50 Mg Tablet PO 100 mg DAILY JOHN Administration Metoprolol Succinate 50 mg 05/18/20 20:00 05/19/20 12:30 Metoprolol Succinate 50 Mg Tablet PO 50 mg 1200,2000 JOHN Administration Multivitamins/Minerals 1 tab 05/19/20 16:00 05/19/20 16:12 Multivitamin W/Minerals Tablet PO 1 tab DAILYWM JOHN Administration Polyethylene Glycol 17 gm 05/19/20 09:00 05/19/20 10:53 Polyethylene Glycol 3350 17 Gm Packet PO Not Given DAILY JOHN Pregabalin 75 mg 05/18/20 22:00 05/19/20 14:47 Pregabalin 25 Mg Capsule PO 75 mg TID JOHN Administration Sodium Chloride 10 ml 05/18/20 17:30 05/19/20 14:49 Sodium Chloride Flush 0.9% 10 Ml Syringe IVP 20 ml PRN PRN Administration NEEDED PER PROVIDER ORDERS Sodium Chloride 10 ml 05/19/20 01:00 05/19/20 16:13 Sodium Chloride Flush 0.9% 10 Ml Syringe IVP 10 ml 0100,0900,1700 [facility] Administration - Lab Result Fish Bone Diagrams: 05/18/20 12:35 05/19/20 08:45 Subjective - Subjective Patient Reports: Other (Found to be in bed at time of exam. He denied chest pain, dyspnea, dizziness, abdominal pain, fever or chills. The nurse reported that he has been complaining of tiredness all day. His systolic blood pressure in the evening was in the 80s) Objective Vital Signs: Vital Signs - 24 hr 05/18/20 05/18/20 05/19/20 19:45 20:57 01:00 Temperature 37.4 C 36.5 C Heart Rate 81 Heart Rate [ Brachial] Heart Rate [ 118 H 90 Monitoring electrodes] Respiratory 16 15 14 Rate Blood Pressure 110/74 113/72 [Left Brachial artery] O2 Saturation 95 93 97 05/19/20 05/19/20 05/19/20 06:50 06:56 09:03 Temperature 36.4 C L 37.4 C Heart Rate Heart Rate [ 88 Brachial] Heart Rate [ 61 Monitoring electrodes] Respiratory 14 16 Rate Blood Pressure 106/58 L 96/59 L [Left Brachial artery] O2 Saturation 92 90 L 05/19/20 05/19/20 05/19/20 10:50 12:32 16:21 Temperature 36.7 C 36.2 C L Heart Rate Heart Rate [ 86 120 H 66 Brachial] Heart Rate [ Monitoring electrodes] Respiratory 16 18 16 Rate Blood Pressure 92/56 L 109/78 103/57 L [Left Brachial artery] O2 Saturation 97 97 93 Oxygen O2 Source Room air I&O (Last 24 Hrs): Intake and Output Totals x24h 05/17/20 05/18/20 05/19/20 23:59 23:59 23:59 Intake Total 1200 Output Total 0 Balance 1200 General: Alert, Oriented x3, No acute distress, Other (tired) HEENT: PERRLA, EOMI Neck: Supple, No JVD Neuro: Alert, Non Focal, Oriented Times 3 Cardiovascular: Regular rate Respiratory: Chest non-tender, No respiratory distress, Breath sounds nml Abdomen: Normal bowel sounds, Soft, No tenderness, No masses Extremities: No clubbing, No cyanosis, No edema, Other (hair loss on less) - Results Results: Laboratory Results WBC 11.8 x10^3/uL (4.8-10.8) H 05/18/20 12:35 RBC 4.67 10^6/uL (4.70-6.10) L 05/18/20 12:35 Hgb 14.1 g/dL (14.0-18.0) 05/18/20 12:35 Hct 44.1 % (42.0-52.0) 05/18/20 12:35 MCV 94.4 fL (80.0-94.0) H 05/18/20 12:35 MCH 30.2 pg (27.0-31.0) 05/18/20 12:35 MCHC 32.0 g/dL (32.0-36.0) 05/18/20 12:35 RDW 13.0 % (12.0-15.0) 05/18/20 12:35 Plt Count 169 10^3/uL (130-450) 05/18/20 12:35 MPV 10.6 fL (7.4-11.4) 05/18/20 12:35 Neut # (Auto) 9.1 10^3/uL (1.5-6.6) H 05/18/20 12:35 Lymph # (Auto) 1.1 10^3/uL (1.5-3.5) L 05/18/20 12:35 [place] # (Auto) 1.5 10^3/uL (0.0-1.0) H 05/18/20 12:35 Eos # (Auto) 0.1 10^3/uL (0.0-0.7) 05/18/20 12:35 Baso # (Auto) 0.1 10^3/uL (0.0-0.1) 05/18/20 12:35 Absolute Nucleated RBC 0.00 x10^3/uL 05/18/20 12:35 Nucleated RBC % 0.0 /100WBC 05/18/20 12:35 ESR 1 mm/Hr (0-20) 05/18/20 12:35 PT 16.0 secs (9.9-12.6) H 05/18/20 12:35 INR 1.5 (0.8-1.2) H 05/18/20 12:35 Sodium 135 mmol/L (135-145) 05/19/20 08:45 Potassium 4.3 mmol/L (3.5-5.0) 05/19/20 08:45 Chloride 99 mmol/L (101-111) L 05/19/20 08:45 Carbon Dioxide 23 mmol/L (21-32) 05/19/20 08:45 Anion Gap 13.0 (6-13) 05/19/20 08:45 BUN 52 mg/dL (6-20) H 05/19/20 08:45 Creatinine 1.9 mg/dL (0.6-1.2) H 05/19/20 08:45 Estimated GFR (MDRD) 35 (>89) L 05/19/20 08:45 Glucose 226 mg/dL (70-100) H 05/19/20 08:45 Lactic Acid 1.5 mmol/L (0.5-2.2) 05/18/20 12:35 Calcium 9.3 mg/dL (8.5-10.3) 05/19/20 08:45 Magnesium 2.0 mg/dL (1.7-2.8) 05/18/20 12:35 Total Bilirubin 1.5 mg/dL (0.2-1.0) H 05/18/20 12:35 AST 17 IU/L (10-42) 05/18/20 12:35 ALT 16 IU/L (10-60) 05/18/20 12:35 Alkaline Phosphatase 127 IU/L (42-121) H 05/18/20 12:35 Troponin I High Sens 10.2 ng/L (2.3-19.7) 05/19/20 04:34 C-Reactive Protein 21.5 mg/dL (0-1.0) H 05/19/20 08:24 B-Natriuretic Peptide 221 pg/mL (5-100) H 05/18/20 18:00 Total Protein 8.4 g/dL (6.7-8.2) H 05/18/20 12:35 Albumin 4.2 g/dL (3.2-5.5) 05/18/20 12:35 Globulin 4.2 g/dL (2.1-4.2) 05/18/20 12:35 Albumin/Globulin Ratio 1.0 (1.0-2.2) 05/18/20 12:35 TSH 0.24 uIU/mL (0.34-5.60) L 05/18/20 12:35 Free T4 1.38 ng/dL (0.58-1.64) 05/19/20 08:45 Fluid Source SYNOVIAL 05/18/20 13:25 Fluid Color YELLOW 05/18/20 13:25 Fluid Clarity CLOUDY 05/18/20 13:25 Fluid WBC 52234 /mm^3 05/18/20 13:25 Fluid RBC 9000 /mm^3 05/18/20 13:25 Fluid Neutrophils % 81.0 % 05/18/20 13:25 Fluid Lymphocytes % 4.0 % 05/18/20 13:25 Fluid Monocytes % 15.0 % 05/18/20 13:25 Fld Mesothelial Cell % Not Reportable 05/18/20 13:25 Fluid Crystals NONE SEEN (N) 05/18/20 13:25 Nasal Adenovirus (PCR) NOT DETECTED 05/18/20 15:48 Nasal B. parapertussis DNA (PCR) NOT DETECTED 05/18/20 15:48 Nasal Coronavir 229E PCR NOT DETECTED 05/18/20 15:48 Nasal Coronavir HKU1 PCR NOT DETECTED 05/18/20 15:48 Nasal Coronavir NL63 PCR NOT DETECTED 05/18/20 15:48 Nasal Coronavir OC43 PCR NOT DETECTED 05/18/20 15:48 Nasal Enterovir/Rhinovir PCR NOT DETECTED 05/18/20 15:48 Nasal Influenza B PCR NOT DETECTED 05/18/20 15:48 Nasal Influenza A PCR NOT DETECTED 05/18/20 15:48 Nasal Parainfluen 1 PCR NOT DETECTED 05/18/20 15:48 Nasal Parainfluen 2 PCR NOT DETECTED 05/18/20 15:48 Nasal Parainfluen 3 PCR NOT DETECTED 05/18/20 15:48 Nasal Parainfluen 4 PCR NOT DETECTED 05/18/20 15:48 Nasal RSV (PCR) NOT DETECTED 05/18/20 15:48 Nasal B.pertussis DNA PCR NOT DETECTED 05/18/20 15:48 Nasal C.pneumoniae (PCR) NOT DETECTED 05/18/20 15:48 John Human Metapneumo PCR NOT DETECTED 05/18/20 15:48 Nasal M.pneumoniae (PCR) NOT DETECTED 05/18/20 15:48 Nasal SARS-CoV-2 (PCR) NOT DETECTED 05/18/20 15:48 ABX Reporting Has patient been on IV antibiotics over the past 48 hours?: No
[2020-05-19] MEDS ORDERED: SODIUM CHLORIDE 0.9% 500 ML IV ONE ×2 (21:09→21:15)
[2020-05-19] MEDS: ATORVASTATIN 40 MG TABLET PO SCH (21:28)
[2020-05-20] MEDS: SODIUM CHLORIDE FLUSH 0.9% 10 ML SYRINGE IVP SCH ×3 (00:12→17:25)
[2020-05-20] MEDS: METOPROLOL SUCCINATE 50 MG TABLET PO SCH ×4 (00:13→20:01)
[2020-05-20] MEDS ORDERED: SODIUM CHLORIDE 0.9% 1,000 ML IV SCH (01:00)
[2020-05-20] MEDS: SODIUM CHLORIDE FLUSH 0.9% 10 ML SYRINGE IVP PRN (01:31)
[2020-05-20] MEDS: PREGABALIN 25 MG CAPSULE PO SCH ×3 (06:18→21:01)
[2020-05-20] MEDS: LEVOTHYROXINE 100 MCG TABLET PO SCH (06:18)
[2020-05-20 07:09] LABS: BASOPHILS % (AUTO) 0.4 %; EOSINOPHILS # (AUTO) 0.1 10^3/uL (0.0-0.7); EOSINOPHILS % (AUTO) 0.9 %; HGB - HEMOGLOBIN 11.9 g/dL (14.0-18.0); LYMPHOCYTES # (AUTO) 1.6 10^3/uL (1.5-3.5); LYMPHOCYTES % (AUTO) 15.1 %; MEAN CORPUSCULAR HEMOGLOBIN 30.4 pg (27.0-31.0); MEAN CORPUSCULAR HGB CONC 31.6 g/dL (32.0-36.0); MEAN CORPUSCULAR VOLUME 95.9 fL (80.0-94.0); MEAN PLATELET VOLUME 11.1 fL (7.4-11.4); MONOCYTES # (AUTO) 1.2 10^3/uL (0.0-1.0); MONOCYTES % (AUTO) 11.2 %; NEUTROPHILS # (AUTO) 7.6 10^3/uL (1.5-6.6); PLT - PLATELET COUNT 170 10^3/uL (130-450); RED BLOOD COUNT 3.92 10^6/uL (4.70-6.10); WHITE BLOOD COUNT 10.6 x10^3/uL (4.8-10.8)
[2020-05-20 07:19] LABS: CALCIUM 8.8 mg/dL (8.5-10.3); CREATININE 2.8 mg/dL (0.6-1.2)
[2020-05-20] MEDS ORDERED: DIGOXIN 125 MCG TABLET PO SCH (08:00)
[2020-05-20] MEDS: HYDROmorphone 2 MG TABLET PO PRN ×2 (10:00→18:26)
[2020-05-20] MEDS: ACETAMINOPHEN 325 MG TABLET PO PRN ×2 (10:01→18:26)
[2020-05-20] MEDS: FAMOTIDINE 20 MG TABLET PO SCH (10:02)
[2020-05-20] MEDS: MULTIVITAMIN W/MINERALS TABLET PO SCH (10:03)
[2020-05-20] MEDS: CHOLECALCIFEROL 5,000 UNIT CAPSULE PO SCH (10:03)
[2020-05-20] MEDS: polyethylene glycoL 3350 17 GM PACKET PO SCH (10:03)
[2020-05-20] MEDS ORDERED: MIDODRINE 2.5 MG TABLET PO ONE (14:00)
--- NOTE | 2020-05-20 15:32 | PROVIDER PROGRESS NOTE ---
Assessment/Plan - Problem List (1) Atrial fibrillation with rapid ventricular response Assessment/Plan: He was admitted for rate control of Aflutter with 2:1 block, in a ventricular rate of 130. Yesterday, his Metoprolol was increased from 100mg in am, 25 at noon, 25 at evening to 100,50,50. This did bring his HR to 60-70 but caused hypotension to syst BP of 78. Patient tells me today in detail that this has been his problem for the last 9 months, ever since his CABG. Dr. Horn has already had him on a maximum 200 mg daily of metoprolol and this caused low blood pressure and dizziness. He has already been advised to measure his blood pressure 3 times a day and only take the metoprolol when he has a stable blood pressure. He said that no other medications have been tried for heart rate control because he only sees Dr. Horn every several months. He has also never been tried on medications for low blood pressure. He already takes compression stockings on every day, off for bedtime, for the last 6-years. These are not prescription Jobst stockings however. The Metoprolol will be returned to his 100, 25, 25 doses. Will add Dig for rate control, check level in am Continue telemetry. (2) Hypotension Assessment/Plan: Patient tells me today in detail that this has been his problem for the last 9 months, ever since his CABG. Dr. Horn has already had him on a maximum 200 mg daily of metoprolol and this caused low blood pressure and dizziness. He has already been advised to measure his blood pressure 3 times a day and only take the metoprolol when he has a stable blood pressure. He said that no other medications have been tried for heart rate control because he only sees Dr. Horn every several months. He has also never been tried on medications for low blood pressure. He already takes compression stockings on every day, off for bedtime, for the last 6-years. These are not prescription Jobst stockings however. The Metoprolol will be returned to his 100, 25, 25 doses. He was given a fluid bolus last night, and he is getting 1 L of fluids throughout the day today to stop this evening. Not more than 1 L is planned because he has a cardiomyopathy and gets leg edema, uses Lasix routinely. We will begin midodrine 2.5 mg bid-tid at mealtime. Will check orthostatic vital signs (3) Acute kidney injury superimposed on CKD Assessment/Plan: His Lasix was not continued while here but he got high doses of IV NSAIDs (Toradol) to treat the pseudogout of the wrist. The Toradol has been stopped. He is getting IV fluids today. The dig dosing has to be adjusted because of this significant increase in creatinine. He cannot be discharged today because he needs management of his blood pressure and OMAIRA. (4) Pseudogout of right wrist Assessment/Plan: IV Toradol was started, needed to be stopped because it caused OMAIRA. He is tolerating his Tylenol, gabapentin and wrist rest. (5) Ischemic cardiomyopathy Assessment/Plan: This man had LVEF of 35% in June 2019. His work-up last year showed CAD and he needed CABG. It is unclear if there was improvement in LV function after the CABG and an echo was done here during this hospitalization. The EF is now 45%. Patient states he still gets leg edema and does need Lasix daily and even takes 2 tablets when the leg swelling is even bigger. Since being admitted he has received no Lasix, has needed IV fluids for OMAIRA and hypotension. He continues to be on his beta-uziel, the FARZANEH inhibitor dose is on hold because of his low blood pressure. (6) History of coronary artery disease Assessment/Plan: CABG and watchman device implant were done in August 2019. Continue with aspirin, statin, beta uziel (7) PVD (peripheral vascular disease) with claudication Assessment/Plan: Patient has a stent in the right leg and angioplasty done of the left arterial system. He does have some claudication but "can handle it" but further revascularization is still planned he reported. (8) Hypothyroidism Assessment/Plan: The TSH level was low at 0.24 but he had a normal T4. Resume his usual thyroid replacement dose - Current Meds Current Meds: Current Medications Generic Name Dose Route Start Last Admin Trade Name Freq PRN Reason Stop Dose Admin Acetaminophen 650 mg 05/18/20 17:30 05/20/20 10:01 Acetaminophen 325 Mg Tablet PO 650 mg Q4HR PRN Administration Pain 1 to 4 Atorvastatin Calcium 80 mg 05/18/20 21:00 05/19/20 21:28 Atorvastatin 40 Mg Tablet PO 80 mg QPM JOHN Administration Cholecalciferol 5,000 unit 05/20/20 09:00 05/20/20 10:03 Cholecalciferol 5,000 Unit Capsule PO 5,000 unit DAILY JOHN Administration Digoxin 125 mcg 05/20/20 08:00 05/20/20 10:02 Digoxin 125 Mcg Tablet PO 125 mcg MOWEFR JOHN Administration Famotidine 20 mg 05/19/20 12:29 05/20/20 10:02 Famotidine 20 Mg Tablet PO 20 mg DAILY JOHN Administration Hydromorphone HCl 2 - 4 mg 05/18/20 17:37 05/20/20 10:00 Hydromorphone 2 Mg Tablet PO 4 mg QID PRN Administration PAIN Levothyroxine Sodium 150 mcg 05/19/20 07:00 05/20/20 06:18 Levothyroxine 100 Mcg Tablet PO 150 mcg QDAC ON LICENSE OF [facility] Administration Metoprolol Succinate 100 mg 05/19/20 09:00 05/20/20 10:02 Metoprolol Succinate 50 Mg Tablet PO 100 mg DAILY JOHN Administration Metoprolol Succinate 25 mg 05/20/20 12:00 05/20/20 13:20 Metoprolol Succinate 50 Mg Tablet PO Not Given 1200,1999 ON LICENSE OF [facility] Multivitamins/Minerals 1 tab 05/19/20 16:00 05/20/20 10:03 Multivitamin W/Minerals Tablet PO 1 tab DAILYWM JOHN Administration Polyethylene Glycol 17 gm 05/19/20 09:00 05/20/20 10:03 Polyethylene Glycol 3350 17 Gm Packet PO 17 gm DAILY JOHN Administration Pregabalin 75 mg 05/18/20 22:00 05/20/20 13:16 Pregabalin 25 Mg Capsule PO 75 mg TID JOHN Administration Sodium Chloride 10 ml 05/18/20 17:30 05/20/20 01:31 Sodium Chloride Flush 0.9% 10 Ml Syringe IVP 10 ml PRN PRN Administration NEEDED PER PROVIDER ORDERS Sodium Chloride 10 ml 05/19/20 01:00 05/20/20 10:05 Sodium Chloride Flush 0.9% 10 Ml Syringe IVP Not Given 0100,0900,1700 ON LICENSE OF [facility] - Lab Result Fish Bone Diagrams: 05/20/20 05:34 05/20/20 05:34 - Additional Planning My Orders: My Active Orders 05/19/20 16:00 Multivitamin W/Minerals [Theragran M] 1 tab PO DAILYWM 05/19/20 Dinner Cardiac Diet [DIET] 05/20/20 08:00 Digoxin [Lanoxin] 125 mcg PO MOWEFR 05/20/20 09:00 Cholecalciferol [Vitamin D3] 5,000 unit PO DAILY 05/20/20 12:00 Metoprolol Succinate [Toprol Xl] 25 mg PO 1200,199905/20/20 13:51 LEONARD Jessicae [RC[facility] 05/20/20 13:53 Orthostatic [Vital Signs - Orthostatic] [RC] [facility] 05/20/20 18:00 Sodium/Potassium/Mag Sulfates [Suprep Bowel Prep Kit] 177 ml PO 1800,0500 05/20/20 19:00 Midodrine 2.5 mg PO 0800,1300,1900 05/21/20 05:00 DIGOXIN [CHEM] DAILYLAB Objective Vital Signs: Vital Signs - 24 hr 05/19/20 05/19/20 05/19/20 16:21 20:30 21:00 Temperature 36.2 C L Heart Rate [ 66 Brachial] Heart Rate [ 65 Monitoring electrodes] Respiratory 16 Rate Blood Pressure 103/57 L 79/51 L 82/50 L [Left Brachial artery] Blood Pressure 80/46 L [Right Brachial artery] O2 Saturation 93 05/19/20 05/19/20 05/19/20 21:15 23:15 23:30 Temperature 36.4 C L 36.6 C Heart Rate [ 63 65 66 Brachial] Heart Rate [ Monitoring electrodes] Respiratory 16 16 Rate Blood Pressure 92/56 L 119/65 [Left Brachial artery] Blood Pressure 111/69 [Right Brachial artery] O2 Saturation 94 96 05/20/20 05/20/20 05/20/20 05:00 08:15 11:47 Temperature 36.8 C 36.6 C 36.7 C Heart Rate [ 90 93 64 Brachial] Heart Rate [ Monitoring electrodes] Respiratory 16 16 20 Rate Blood Pressure [Left Brachial artery] Blood Pressure 111/62 119/60 101/59 L [Right Brachial artery] O2 Saturation 93 92 96 05/20/20 13:18 Temperature Heart Rate [ Brachial] Heart Rate [ 78 Monitoring electrodes] Respiratory Rate Blood Pressure [Left Brachial artery] Blood Pressure 84/70 L [Right Brachial artery] O2 Saturation Oxygen O2 Source Room air I&O (Last 24 Hrs): Intake and Output Totals x24h 05/18/20 05/19/20 05/20/20 23:59 23:59 23:59 Intake Total 1616.65 2025.35 Output Total 0 Balance 1616.65 2025. General: Alert, Oriented x3 HEENT: Mucous membr. moist/pink, Other (Poor dentition) Neck: Supple, No JVD Neuro: Alert, Non Focal Cardiovascular: Regular rate, No murmurs Respiratory: No respiratory distress, Breath sounds nml Abdomen: Soft Extremities: No edema, Other (Red and shiny skin of his ankles) - Results Results: Laboratory Results WBC 10.6 x10^3/uL (4.8-10.8) 05/20/20 05:34 RBC 3.92 10^6/uL (4.70-6.10) L 05/20/20 05:34 Hgb 11.9 g/dL (14.0-18.0) L 05/20/20 05:34 Hct 37.6 % (42.0-52.0) L 05/20/20 05:34 MCV 95.9 fL (80.0-94.0) H 05/20/20 05:34 MCH 30.4 pg (27.0-31.0) 05/20/20 05:34 MCHC 31.6 g/dL (32.0-36.0) L 05/20/20 05:34 RDW 13.0 % (12.0-15.0) 05/20/20 05:34 Plt Count 170 10^3/uL (130-450) 05/20/20 05:34 MPV 11.1 fL (7.4-11.4) 05/20/20 05:34 Neut # (Auto) 7.6 10^3/uL (1.5-6.6) H 05/20/20 05:34 Lymph # (Auto) 1.6 10^3/uL (1.5-3.5) 05/20/20 05:34 [place] # (Auto) 1.2 10^3/uL (0.0-1.0) H 05/20/20 05:34 Eos # (Auto) 0.1 10^3/uL (0.0-0.7) 05/20/20 05:34 Baso # (Auto) 0.0 10^3/uL (0.0-0.1) 05/20/20 05:34 Absolute Nucleated RBC 0.00 x10^3/uL 05/20/20 05:34 Nucleated RBC % 0.0 /100WBC 05/20/20 05:34 ESR 1 mm/Hr (0-20) 05/18/20 12:35 PT 16.0 secs (9.9-12.6) H 05/18/20 12:35 INR 1.5 (0.8-1.2) H 05/18/20 12:35 Sodium 136 mmol/L (135-145) 05/20/20 05:34 Potassium 3.9 mmol/L (3.5-5.0) 05/20/20 05:34 Chloride 99 mmol/L (101-111) L 05/20/20 05:34 Carbon Dioxide 22 mmol/L (21-32) 05/20/20 05:34 Anion Gap 15.0 (6-13) H 05/20/20 05:34 BUN 80 mg/dL (6-20) H* 05/20/20 05:34 Creatinine 2.8 mg/dL (0.6-1.2) H 05/20/20 05:34 Estimated GFR (MDRD) 22 (>89) L 05/20/20 05:34 Glucose 191 mg/dL (70-100) H 05/20/20 05:34 Lactic Acid 1.5 mmol/L (0.5-2.2) 05/18/20 12:35 Calcium 8.8 mg/dL (8.5-10.3) 05/20/20 05:34 Magnesium 2.0 mg/dL (1.7-2.8) 05/18/20 12:35 Total Bilirubin 1.5 mg/dL (0.2-1.0) H 05/18/20 12:35 AST 17 IU/L (10-42) 05/18/20 12:35 ALT 16 IU/L (10-60) 05/18/20 12:35 Alkaline Phosphatase 127 IU/L (42-121) H 05/18/20 12:35 Troponin I High Sens 10.2 ng/L (2.3-19.7) 05/19/20 04:34 C-Reactive Protein 13.3 mg/dL (0-1.0) H 05/20/20 05:10 B-Natriuretic Peptide 221 pg/mL (5-100) H 05/18/20 18:00 Total Protein 8.4 g/dL (6.7-8.2) H 05/18/20 12:35 Albumin 4.2 g/dL (3.2-5.5) 05/18/20 12:35 Globulin 4.2 g/dL (2.1-4.2) 05/18/20 12:35 Albumin/Globulin Ratio 1.0 (1.0-2.2) 05/18/20 12:35 TSH 0.24 uIU/mL (0.34-5.60) L 05/18/20 12:35 Free T4 1.38 ng/dL (0.58-1.64) 05/19/20 08:45 Fluid Source SYNOVIAL 05/18/20 13:25 Fluid Color YELLOW 05/18/20 13:25 Fluid Clarity CLOUDY 05/18/20 13:25 Fluid WBC 23428 /mm^3 05/18/20 13:25 Fluid RBC 9000 /mm^3 05/18/20 13:25 Fluid Neutrophils % 81.0 % 05/18/20 13:25 Fluid Lymphocytes % 4.0 % 05/18/20 13:25 Fluid Monocytes % 15.0 % 05/18/20 13:25 Fld Mesothelial Cell % Not Reportable 05/18/20 13:25 Fluid Crystals NONE SEEN (N) 05/18/20 13:25 Nasal Adenovirus (PCR) NOT DETECTED 05/18/20 15:48 Nasal B. parapertussis DNA (PCR) NOT DETECTED 05/18/20 15:48 Nasal Coronavir 229E PCR NOT DETECTED 05/18/20 15:48 Nasal Coronavir HKU1 PCR NOT DETECTED 05/18/20 15:48 Nasal Coronavir NL63 PCR NOT DETECTED 05/18/20 15:48 Nasal Coronavir OC43 PCR NOT DETECTED 05/18/20 15:48 Nasal Enterovir/Rhinovir PCR NOT DETECTED 05/18/20 15:48 Nasal Influenza B PCR NOT DETECTED 05/18/20 15:48 Nasal Influenza A PCR NOT DETECTED 05/18/20 15:48 Nasal Parainfluen 1 PCR NOT DETECTED 05/18/20 15:48 Nasal Parainfluen 2 PCR NOT DETECTED 05/18/20 15:48 Nasal Parainfluen 3 PCR NOT DETECTED 05/18/20 15:48 Nasal Parainfluen 4 PCR NOT DETECTED 05/18/20 15:48 Nasal RSV (PCR) NOT DETECTED 05/18/20 15:48 Nasal B.pertussis DNA PCR NOT DETECTED 05/18/20 15:48 Nasal C.pneumoniae (PCR) NOT DETECTED 05/18/20 15:48 John Human Metapneumo PCR NOT DETECTED 05/18/20 15:48 Nasal M.pneumoniae (PCR) NOT DETECTED 05/18/20 15:48 Nasal SARS-CoV-2 (PCR) NOT DETECTED 05/18/20 15:48
[2020-05-20] MEDS ORDERED: MIDODRINE 2.5 MG TABLET PO SCH (17:00)
[2020-05-20] MEDS ORDERED: SODIUM/POTASSIUM/MAG SULFATES 354 ML PREP KIT PO SCH (18:00)
[2020-05-20] MEDS: MIDODRINE 2.5 MG TABLET PO SCH (20:01)
[2020-05-20] MEDS: ATORVASTATIN 40 MG TABLET PO SCH (21:01)
[2020-05-20] MEDS ORDERED: SODIUM CHLORIDE 0.9% 1,000 ML IV ONE (23:48)
[2020-05-21] MEDS: SODIUM CHLORIDE FLUSH 0.9% 10 ML SYRINGE IVP SCH ×2 (00:55→08:39)
[2020-05-21] MEDS: HYDROmorphone 2 MG TABLET PO PRN (03:51)
[2020-05-21] MEDS: ACETAMINOPHEN 325 MG TABLET PO PRN (03:51)
[2020-05-21 05:25] LABS: BASOPHILS # (AUTO) 0.1 10^3/uL (0.0-0.1); BASOPHILS % (AUTO) 0.7 %; EOSINOPHILS # (AUTO) 0.3 10^3/uL (0.0-0.7); EOSINOPHILS % (AUTO) 4.3 %; LYMPHOCYTES # (AUTO) 1.3 10^3/uL (1.5-3.5); LYMPHOCYTES % (AUTO) 18.4 %; MEAN CORPUSCULAR HEMOGLOBIN 30.2 pg (27.0-31.0); MEAN CORPUSCULAR HGB CONC 31.9 g/dL (32.0-36.0); MEAN CORPUSCULAR VOLUME 94.5 fL (80.0-94.0); MEAN PLATELET VOLUME 10.7 fL (7.4-11.4); MONOCYTES # (AUTO) 0.9 10^3/uL (0.0-1.0); MONOCYTES % (AUTO) 12.4 %; NEUTROPHILS # (AUTO) 4.4 10^3/uL (1.5-6.6); NEUTROPHILS % (AUTO) 63.8 %; PLT - PLATELET COUNT 179 10^3/uL (130-450); RED BLOOD COUNT 3.98 10^6/uL (4.70-6.10); RED CELL DISTRIBUTION WIDTH 12.8 % (12.0-15.0); WHITE BLOOD COUNT 6.9 x10^3/uL (4.8-10.8)
[2020-05-21 05:38] LABS: CALCIUM 8.2 mg/dL (8.5-10.3)
[2020-05-21 06:02] LABS: DIGOXIN < 0.2 ng/mL
[2020-05-21] MEDS ORDERED: SODIUM CHLORIDE 0.9% 500 ML IV ONE (06:12)
[2020-05-21] MEDS: LEVOTHYROXINE 100 MCG TABLET PO SCH (06:34)
[2020-05-21] MEDS: PREGABALIN 25 MG CAPSULE PO SCH (06:34)
[2020-05-21] MEDS: SODIUM CHLORIDE FLUSH 0.9% 10 ML SYRINGE IVP PRN (06:34)
[2020-05-21] MEDS: METOPROLOL SUCCINATE 50 MG TABLET PO SCH (08:38)
[2020-05-21] MEDS: polyethylene glycoL 3350 17 GM PACKET PO SCH (08:38)
[2020-05-21] MEDS: CHOLECALCIFEROL 5,000 UNIT CAPSULE PO SCH (08:38)
[2020-05-21] MEDS: FAMOTIDINE 20 MG TABLET PO SCH (08:39)
[2020-05-21] MEDS: MIDODRINE 2.5 MG TABLET PO SCH (08:39)
[2020-05-21] MEDS: MULTIVITAMIN W/MINERALS TABLET PO SCH (08:39)
--- NOTE | 2020-05-21 08:56 | Discharge Plan ---
Discharge Plan Problem Reviewed?: Yes Disposition: Home, Self Care Condition: Fair Prescriptions: Digoxin [Lanoxin] 125 mcg PO MOWEFR #12 tablet Metoprolol Tartrate [Lopressor] 100 mg PO DAILY #120 tablet Midodrine 2.5 mg PO 0800,1300,1900 #90 tablet Diet: Low Sodium Activity Restrictions: Activity as Tolerated Shower Restrictions: No Driving Restrictions: No Instruction Topics: Gout Attack Tx, Gout Eat Prevent, ED Hypotension Orthostatic Health Concerns: You were admitted to the hospital to adjust your medicines to control the rapid heart rate. This caused a low blood pressure. You explained that this has been the problem now for many months. Therefore, we added new medication for heart rate control and new medication to help prevent a serious drop in blood pressure. Please resume your pre-hospital medications. One new medication called Digoxin is ordered that you should take only on Saturday, Saturday and Saturday. Also, after 1 to 2 weeks of taking Digoxin, a blood level needs to be done. You have been given a written prescription to submit to the lab for a Digoxin blood level to be done. Please go for this in approximately 10 days (May 31). Your primary care provider or risk control product liability director can fine-tune this dose to help with heart rate [id number]. The other new medication called Midodrine, has been prescribed that prevents low blood pressure. Please take this after your breakfast and lunch meals every day. This dose can be increased and you can also take it after your dinner meal, if the blood pressure is still excessively low. Your Primary Care Provider or your Geospatial Systems Integrator can fine-tune this dose to help with low blood pressure. As instructed previously, please check your blood pressure before you take your Metoprolol medication. Please decrease your Furosemide use. DO NOT TAKE IT DAILY. It has been causing TOO MUCH fluid depletion in your bloodstream. We had to give you IV fluids to rehydrate your body. Only take Furosemide when you see ankle swelling or if you are very [id number]. I estimate you may need to take Furosemide about 3-4 times a week only. The ankle swelling may be happening because you are eating too much salt or drinking too much liquids during your average day. Please stay on a low-salt diet and rely on your thirst to guide you for how much to drink. You are also in the hospital to treat a flareup of arthritis, in your wrist. Please resume your usual medications and management for dealing with arthritis. Plan of Treatment: As above. All new prescriptions were electronically sent to your [facility] pharmacy in [place]. If you have not already done so, you qualify for coming to the Congestive Heart Failure classes here in the Rehab department "[facility]". A referral has been sent. The staff will call you to see if you would like to participate. Care Goals: Improvement in symptoms and stabilization are the goals. Assessment: The patient understands and is agreeable with the plan. Additional Instructions or Follow Up instructions: If you have any new or worsening symptoms, call your Primary Care Provider or Geospatial Systems Integrator for advice or come to the ER. Follow-Up Care: [facility] - Cardiac, [facility] - CHF Classes No Smoking: If you smoke, Please STOP! Call for help. Follow-up with: Aminta Go MD [Primary Care Provider] -
--- NOTE | 2020-05-21 09:12 | DISCHARGE SUMMARY ---
Discharge Summary Admit Date: 05/18/20 Discharge Date: 05/21/20 Discharging Provider: Dr Rosita Johnson Primary Care Provider: Dr Aminta Go Code Status: Attempt Resuscitation Condition at Discharge: Fair Discharge Disposition: 01 Home, Self Care - HPI History of Present Illness: This is a 74 y/o white male with a history of poly-articular gout or pseudo goat attacks, has hypothyroidism, chronic atrial flutter, hypotension, CKD, PVD, CAD and CHF. He had been diagnosed with atrial flutter and an Echo LVEF of 38% last year, had stress testing that was abnormal, underwent outpatient coronary angio and needed CABG in August 2019 plus had implant of a Watchman device in the left atrial appendage (and no longer needs anti-coagulants, therefore). He has had a stent placed in the right leg vessel and had angioplasty of the left leg artery. He gets recurrent gout or pseudo-gout flare-ups. He presented to the ER with a new swollen and painful right wrist, it was tapped in the ER, and he had Orthopedic consultation who advised NSAID treatment. During his ER visit, he was in Afluter with rapid ventricular rate of 130. He received iv Diltiazem x2 and iv Lopressor x2 and remained with heart rates of 130. He will be admitted to the Hospitalist service to manage aflutter with RVR and to treat the painful right wrist. - HOSPITAL COURSE Hospital Course: (1) Atrial fibrillation with rapid ventricular response He was admitted for rate control of Aflutter with 2:1 block, in a ventricular rate of 130. First, his Metoprolol was increased from 100mg in a.m., 25 at noon, 25 at evening to 100mg a.m., 50 at noon, 50 at evening. This did bring his HR to 60-70 but caused hypotension to syst BP of 78. Patient then described in detail that this has been his problem for the last 9 months, ever since his CABG. Dr. Horn has already had him on a maximum 200 mg daily of Metoprolol, and this caused low blood pressure and dizziness at home. He has already been advised to measure his blood pressure 3 times a day and only take the Metoprolol when he has a stable blood pressure. He said that no other medications had yet been tried for rate control "because he only sees Dr. Horn every several months". We started him on Dig 0.125 mg, and the heart rate improved to 80-90 at rest. The Metoprolol was returned to his 100, 25, 25 doses and we added Dig for rate control, 0.125 mg only on Mon, Wed, Fri, because of his CKD. He will need his Dig level followed and close follow-up with PCP and Cardiology. (2) Hypotension Patient reported in detail that this has been his problem for the last 9 months, ever since his CABG. Dr. Horn has already had him on a maximum 200 mg daily of Metoprolol and this caused low blood pressure and dizziness. He has already been advised to measure his blood pressure 3 times a day and only take the Metoprolol when he has a stable blood pressure. He has never been tried on medications to help low blood pressure "because he only sees Dr. Horn every several months". He already uses compression stockings (put on every morning and off for bedtime), for the last 6-years. These are not prescription Jobst stockings however. The Metoprolol was returned to his 100, 25, 25 doses. He was given a fluid bolus and also just 1 more liter of fluids the next day (because he has a cardiomyopathy, and gets leg edema requiring Lasix routinely). His low BP was improved to 110-120's systolic with starting Midodrine 2.5 mg bid-tid at mealtimes, prescribed for home use. Consider adding prescription (tighter) Jobst compression stockings. (3) Acute kidney injury superimposed on CKD His BUN/creat was 36/1.9 at admission, but michael to 52/1.7>> 80/2.8. His Lasix was not continued while here but he got high doses of IV NSAIDs (Toradol) to treat the pseudogout of the wrist. The Toradol was then stopped, and he got IV fluids. This prolonged his hospitalization. BUN/creat were 75/2.0 at discharge. The Digoxin dosing had to be adjusted because of this significant increase in c reatinine. He needs continued management of his low blood pressure, CKD and needs Dig level monitoring, next one should be in 1 week. (4) Pseudogout of right wrist IV Toradol was started, needed to be stopped because it caused OMAIRA on top of his CKD. He was then getting Tylenol, gabapentin and oral Dilaudid for wrist pain. He was discharged with 7 tablets of Colchicine (which has worked for him in the past. (5) Ischemic cardiomyopathy This man had LVEF of 38% in June 2019. His work-up last year showed CAD and he needed CABG. It is unclear if there was improvement in LV function after the CABG, thus an Echo was done here during this hospitalization. The EF is now 45%. Patient states he still gets leg edema and does need Lasix daily and reports even taking 2 tablets when the leg swelling is even bigger. During this admission, he received no Lasix, and needed IV fluids for OMAIRA and hypotension. At discharge, he was advised to only take Lasix prn edema, not daily. (6) History of coronary artery disease CABG (and the Watchman device implant) were done in August 2019. We continued his daily aspirin, statin, and beta uziel. (7) PVD (peripheral vascular disease) with claudication Patient has a stent in the right leg artery and angioplasty done of the left leg system. He does have some claudication but "can handle it". Further revascularization is still planned, he reported. (8) Hypothyroidism The TSH level was low at 0.24 but he had a normal T4 at 1.38. We continued his usual thyroid replacement dose. - ALLERGIES Allergies/Adverse Reactions: Allergies Allergy/AdvReac Type Severity Reaction Status Date / Time spironolactone Allergy Hives Verified 05/19/20 08:31 Sulfa (Sulfonamide Allergy Unknown Verified 05/18/20 12:01 Antibiotics) - MEDICATIONS Home Medications: Ambulatory Orders Medication Instructions Recorded Confirmed Pregabalin 75 mg PO BID 06/30/19 05/19/20 lisinopriL [Lisinopril] 2.5 mg PO DAILY 06/30/19 05/19/20 Aspirin 162 mg PO DAILY 01/29/20 05/19/20 Atorvastatin Calcium 80 mg PO QPM 01/29/20 05/19/20 HYDROmorphone [Dilaudid] 2 - 4 mg PO QID PRN MDD 14 MG 01/29/20 05/19/20 Furosemide [Lasix] 40 - 80 mg PO DAILY 01/30/20 05/19/20 Levothyroxine Sodium [Synthroid] 150 mcg PO QDAC 01/30/20 05/19/20 Acetaminophen [Tylenol] 325 mg PO DAILY PRN 05/19/20 05/19/20 Cholecalciferol [Vitamin D3] 1 tab PO DAILY 05/19/20 05/19/20 Ibuprofen [Advil] 600 mg PO Q8H PRN MDD 2400 mg 05/19/20 05/19/20 Metoprolol Tartrate [Lopressor] 25 mg PO BID 05/19/20 05/19/20 Pantoprazole [Protonix] 40 mg PO DAILY 05/19/20 05/19/20 Colchicine [Colcrys] 0.6 mg PO DAILY #7 tablet 05/21/20 Digoxin [Lanoxin] 125 mcg PO MOWEFR #12 tablet 05/21/20 Metoprolol Tartrate [Lopressor] 100 mg PO DAILY #120 tablet 05/21/20 Midodrine 2.5 mg PO 0800,1300,1900 #90 tablet 05/21/20 - PHYSICAL EXAM AT DISCHARGE General Appearance: positive: No acute distress Eyes Bilateral: positive: Normal inspection, EOMI ENT: positive: ENT inspection nml, No signs of dehydration, Other (Poor dentition) Neck: positive: Nml inspection, No JVD Respiratory: positive: Chest non-tender, No respiratory distress Cardiovascular: positive: Regular rate & rhythm, No murmur Abdomen: positive: Non-tender, No distention Skin: positive: Warm, Dry Extremities: positive: Other (!+ edema to below knees, compression stockings on, R wrist warm, swollen and tender but not red.) Neurologic/Psychiatric: positive: Oriented x3 (Non-focal) - LABS Result Diagrams: 05/21/20 04:18 05/21/20 04:18 - FOLLOW UP Follow Up: See PCP soon for hospital follow-up. He missed a Cardiology appointment with Dr Horn in [facility] [place], while he was admitted here. - TIME SPENT Time Spent in Discharge (Minutes): 60
--- NOTE | 2020-05-21 09:20 | Discharge Plan ---
Discharge Plan Problem Reviewed?: Yes Disposition: Home, Self Care Condition: Fair Prescriptions: Colchicine [Colcrys] 0.6 mg PO DAILY #7 tablet Digoxin [Lanoxin] 125 mcg PO MOWEFR #12 tablet Metoprolol Tartrate [Lopressor] 100 mg PO DAILY #120 tablet Midodrine 2.5 mg PO 0800,1300,1900 #90 tablet Activity Restrictions: Activity as Tolerated Shower Restrictions: No Driving Restrictions: No Instruction Topics: Gout Attack Tx, Gout Eat Prevent, ED Hypotension Orthostatic Health Concerns: You were admitted to the hospital to adjust your medicines to control the rapid heart rate. This caused a low blood pressure. You explained that this has been the problem now for many months. Therefore, we added new medication for heart rate control and new medication to help prevent a serious drop in blood pressure. Please resume your pre-hospital medications. One new medication called Digoxin is ordered that you should take only on Saturday, Saturday and Saturday. Also, after 1 to 2 weeks of taking Digoxin, a blood level needs to be done. You have been given a written prescription to submit to the lab for a Digoxin blood level to be done. Please go for this in approximately 10 days (May 31). Your primary care provider or shellfish bed worker can fine-tune this dose to help with heart rate [id number]. The other new medication called Midodrine, has been prescribed that prevents low blood pressure. Please take this after your breakfast and lunch meals every day. This dose can be increased and you can also take it after your dinner meal, if the blood pressure is still excessively low. Your Primary Care Provider or your Glass Technologist can fine-tune this dose to help with low blood pressure. As instructed previously, please check your blood pressure before you take your Metoprolol medication. Please decrease your Furosemide use. DO NOT TAKE IT DAILY. It has been causing TOO MUCH fluid depletion in your bloodstream. We had to give you IV fluids to rehydrate your body. Only take Furosemide when you see ankle swelling or if you are very [id number]. I estimate you may need to take Furosemide about 3-4 times a week only. The ankle swelling may be happening because you are eating too much salt or drinking too much liquids during your average day. Please stay on a low-salt diet and rely on your thirst to guide you for how much to drink. You are also in the hospital to treat a flareup of arthritis, in your wrist. Please resume your usual medications and management for dealing with arthritis. Plan of Treatment: As above. All new prescriptions were electronically sent to your [facility] pharmacy in [place]. If you have not already done so, you qualify for coming to the Congestive Heart Failure classes here in the Rehab department "[facility]". A referral has been sent. The staff will call you to see if you would like to participate. Care Goals: Improvement in symptoms and stabilization are the goals. Assessment: The patient understands and is agreeable with the plan. Additional Instructions or Follow Up instructions: If you have any new or worsening symptoms, call your Primary Care Provider or Glass Technologist for advice or come to the ER. No Smoking: If you smoke, Please STOP! Call for help. Follow-up with: Aminta Go MD [Primary Care Provider] -
[2020-05-21] MEDS ORDERED: COLCHICINE 0.6 MG TABLET PO SCH (10:00)
[2020-05-21 10:30] VITALS: BP 134/79
== END 2020-05-21 10:20 | disposition home or self-care (01) | DRG 309 ==
LOC: EDUNIT# → ED 11:54 → MS2 16:48
PROVIDERS: ADMIT Internal Medicine; ATTEND Internal Medicine
DX: I48.3 Typical atrial flutter (principal); M25.531 Pain in right wrist; I48.91 Unspecified atrial fibrillation; I48.92 Unspecified atrial flutter; I13.0 Hypertensive heart and chronic kidney disease with heart failure and stage 1 through stage 4 chronic kidney disease, or unspecified chronic kidney disease; N17.9 Acute kidney failure, unspecified; I73.9 Peripheral vascular disease, unspecified; I50.22 Chronic systolic (congestive) heart failure; M11.231 Other chondrocalcinosis, right wrist; N18.9 Chronic kidney disease, unspecified; I50.9 Heart failure, unspecified; I25.5 Ischemic cardiomyopathy; I25.10 Atherosclerotic heart disease of native coronary artery without angina pectoris; E03.9 Hypothyroidism, unspecified; I95.9 Hypotension, unspecified; I70.219 Atherosclerosis of native arteries of extremities with intermittent claudication, unspecified extremity; I48.20 Chronic atrial fibrillation, unspecified; I95.2 Hypotension due to drugs; T44.7X5A Adverse effect of beta-adrenoreceptor antagonists, initial encounter; Y92.230 Patient room in hospital as the place of occurrence of the external cause; G89.29 Other chronic pain; M54.9 Dorsalgia, unspecified; Z98.890 Other specified postprocedural states; Z79.82 Long term (current) use of aspirin; Z79.891 Long term (current) use of opiate analgesic; Z79.899 Other long term (current) drug therapy; Z95.5 Presence of coronary angioplasty implant and graft; I10 Essential (primary) hypertension; Z95.828 Presence of other vascular implants and grafts; Z20.822 Contact with and (suspected) exposure to COVID-19
CPT/HCPCS: 20605; 36415; 71045; 73110; 80048; 80053; 80162; 83605; 83735; 83880; 84439; 84443; 84484; 85025; 85610; 85651; 86140; 87040; 87070; 87205; 87631; 89051; 89060; 93005; 93306; 96374; 96375; 96376; 99285; A9270; J1170; J7512; 0202U

== ENCOUNTER 2021-06-22 08:00 | Outpatient (CLI) | payer MEDICARE, BC | END 2021-06-22 23:59 | disposition home or self-care (01) | LOC: LAB.R 08:00 | PROVIDERS: ATTEND Internal Medicine | DX: S81.801A Unspecified open wound, right lower leg, initial encounter (principal); R21 Rash and other nonspecific skin eruption | CPT/HCPCS: 81599; 87070; 87205; 87254; 87255 ==

== ENCOUNTER 2021-07-18 08:00 | Outpatient (CLI) | payer MEDICARE, BC ==
[2021-07-18 16:24] LABS: CHOL/HDL RATIO 2.3 (<5.0); CHOLESTEROL 106 mg/dL; HDL CHOLESTEROL 47 mg/dL; LDL CHOLESTEROL,CALCULATED 46 mg/dL; TRIGLYCERIDES 66 mg/dL; VLDL CHOLESTEROL 13 mg/dL
== END 2021-07-18 23:59 ==
LOC: LAB.R 08:00
PROVIDERS: ATTEND Internal Medicine
DX: I25.10 Atherosclerotic heart disease of native coronary artery without angina pectoris (principal)
CPT/HCPCS: 80061; 83721

== ENCOUNTER 2022-03-09 08:00 | Outpatient (CLI) | payer MEDICARE, BC ==
[2022-03-09 16:08] LABS: BASOPHILS # (AUTO) 0.1 10^3/uL (0.0-0.1); BASOPHILS % (AUTO) 0.3 %; EOSINOPHILS % (AUTO) 0.2 %; HCT - HEMATOCRIT 43.1 % (42.0-52.0); HGB - HEMOGLOBIN 14.2 g/dL (14.0-18.0); LYMPHOCYTES # (AUTO) 2.2 10^3/uL (1.5-3.5); LYMPHOCYTES % (AUTO) 13.7 %; MEAN CORPUSCULAR HGB CONC 32.9 g/dL (32.0-36.0); MEAN CORPUSCULAR VOLUME 91.1 fL (80.0-94.0); MEAN PLATELET VOLUME 10.9 fL (7.4-11.4); MONOCYTES # (AUTO) 1.3 10^3/uL (0.0-1.0); NEUTROPHILS # (AUTO) 12.2 10^3/uL (1.5-6.6); PLT - PLATELET COUNT 261 10^3/uL (130-450); RED BLOOD COUNT 4.73 10^6/uL (4.70-6.10); WHITE BLOOD COUNT 15.8 x10^3/uL (4.8-10.8)
[2022-03-09 16:22] LABS: CREATININE,URINE 23.8 mg/dL; MICROALBUM/CREATININE RATIO,UR 407.6 ug/mg (<30.0); MICROALBUMIN,URINE 9.7 mg/dL (0-300.0)
[2022-03-09 16:32] LABS: ALBUMIN 4.5 g/dL (3.2-5.5); ALBUMIN/GLOBULIN RATIO 1.3 (1.0-2.2); ALKALINE PHOSPHATASE 109 IU/L (42-121); ALT ALANINE AMINOTRANSFERASE 30 IU/L (10-60); AST ASPARTATE AMINOTRANSFERASE 30 IU/L (10-42); BILIRUBIN,TOTAL 0.7 mg/dL (0.2-1.0); BUN - BLOOD UREA NITROGEN 41 mg/dL (6-20); CALCIUM 9.6 mg/dL (8.5-10.3); CARBON DIOXIDE - CO2 28 mmol/L (21-32); CHLORIDE 98 mmol/L (101-111); CHOL/HDL RATIO 2.3 (<5.0); CHOLESTEROL 113 mg/dL; CK- CREATINE KINASE 323 IU/L (22-269); CREATININE 1.7 mg/dL (0.6-1.2); GFR - MDRD 39 (>89); GLUCOSE 269 mg/dL (70-100); HDL CHOLESTEROL 49 mg/dL; LDL CHOLESTEROL,CALCULATED 46 mg/dL; LDL/HDL RATIO 0.9 (<3.6); POTASSIUM 3.8 mmol/L (3.5-5.0); SODIUM 139 mmol/L (135-145); TOTAL PROTEIN 7.9 g/dL (6.7-8.2); TRIGLYCERIDES 90 mg/dL; URIC ACID 8.6 mg/dL (2.6-7.2); VLDL CHOLESTEROL 18 mg/dL
[2022-03-09 20:40] LABS: ESTIMATED AVERAGE GLUCOSE 171 mg/dL (70-100); HEMOGLOBIN A1c% 7.6 % (4.27-6.07)
== END 2022-03-09 23:59 | disposition home or self-care (01) ==
LOC: LAB.R 08:00
PROVIDERS: ATTEND Internal Medicine
DX: Z00.00 Encounter for general adult medical examination without abnormal findings (principal); I13.0 Hypertensive heart and chronic kidney disease with heart failure and stage 1 through stage 4 chronic kidney disease, or unspecified chronic kidney disease; I50.9 Heart failure, unspecified; E11.22 Type 2 diabetes mellitus with diabetic chronic kidney disease; N18.9 Chronic kidney disease, unspecified; D63.1 Anemia in chronic kidney disease; I48.91 Unspecified atrial fibrillation; M10.9 Gout, unspecified; E03.9 Hypothyroidism, unspecified; G47.00 Insomnia, unspecified; M19.90 Unspecified osteoarthritis, unspecified site; M48.00 Spinal stenosis, site unspecified
CPT/HCPCS: 36415; 80053; 80061; 82043; 82550; 82570; 83036; 83721; 83880; 84443; 84550; 85025

== ENCOUNTER 2022-11-02 08:31 | Outpatient (CLI) | payer MEDICARE, BC ==
[2022-11-02 14:28] LABS: BASOPHILS # (AUTO) 0.1 10^3/uL (0.0-0.1); BASOPHILS % (AUTO) 0.7 %; EOSINOPHILS # (AUTO) 0.6 10^3/uL (0.0-0.7); EOSINOPHILS % (AUTO) 8.3 %; HCT - HEMATOCRIT 41.7 % (42.0-52.0); HGB - HEMOGLOBIN 13.6 g/dL (14.0-18.0); LYMPHOCYTES # (AUTO) 2.3 10^3/uL (1.5-3.5); MEAN CORPUSCULAR HEMOGLOBIN 29.8 pg (27.0-31.0); MEAN CORPUSCULAR HGB CONC 32.6 g/dL (32.0-36.0); MEAN CORPUSCULAR VOLUME 91.2 fL (80.0-94.0); MEAN PLATELET VOLUME 10.9 fL (7.4-11.4); MONOCYTES # (AUTO) 0.8 10^3/uL (0.0-1.0); MONOCYTES % (AUTO) 10.4 %; NEUTROPHILS # (AUTO) 3.7 10^3/uL (1.5-6.6); NEUTROPHILS % (AUTO) 49.2 %; PLT - PLATELET COUNT 215 10^3/uL (130-450); RED BLOOD COUNT 4.57 10^6/uL (4.70-6.10); RED CELL DISTRIBUTION WIDTH 13.6 % (12.0-15.0); WHITE BLOOD COUNT 7.5 x10^3/uL (4.8-10.8)
[2022-11-02 14:45] LABS: ESTIMATED AVERAGE GLUCOSE 194 mg/dL (70-100); HEMOGLOBIN A1c% 8.4 % (4.27-6.07)
[2022-11-02 14:56] LABS: ALBUMIN 4.1 g/dL (3.2-5.5); ALBUMIN/GLOBULIN RATIO 1.2 (1.0-2.2); BILIRUBIN,TOTAL 0.7 mg/dL (0.2-1.0); CALCIUM 9.3 mg/dL (8.5-10.3); CREATININE 1.4 mg/dL (0.6-1.2); POTASSIUM 3.7 mmol/L (3.5-5.0); TOTAL PROTEIN 7.4 g/dL (6.7-8.2)
== END 2022-11-02 08:32 | disposition home or self-care (01) ==
LOC: LAB.S 08:31
PROVIDERS: ATTEND Internal Medicine
DX: E11.9 Type 2 diabetes mellitus without complications (principal); R53.83 Other fatigue
CPT/HCPCS: 36415; 80053; 83036; 84443; 85025

== ENCOUNTER 2023-04-08 12:44 | Outpatient (CLI) | payer MEDICARE, BC | END 2023-04-08 12:45 | disposition home or self-care (01) | LOC: LAB.S 12:44 | PROVIDERS: ATTEND Internal Medicine | DX: E05.90 Thyrotoxicosis, unspecified without thyrotoxic crisis or storm (principal); E03.9 Hypothyroidism, unspecified | CPT/HCPCS: 36415; 84443 ==